=== PATIENT | female | born 2000 | race African-American/Black ===

== ENCOUNTER 2022-10-10 10:03 | Emergency (ER) | payer OTHER, SELFPAY ==
[2022-10-10 10:12] VITALS: BP 120/76; PULSE 103; RESP 16; TEMP 37.6; O2SAT 99
[2022-10-10 10:13] VITALS: BP 120/76; PULSE 103; RESP 16; TEMP 37.6; O2SAT 99
--- NOTE | 2022-10-10 10:13 | ED.URI ---
HPI - URI/Sore Throat General Chief Complaint: Upper Respiratory Infection Stated Complaint: sore throat Time Seen by Provider: 10/10/22 10:13 Source: patient, RN notes reviewed and old records reviewed Mode of arrival: ambulatory Limitations: no limitations History of Present Illness HPI Narrative: 22-year-old female presents to the [facility] with complaints of a sore throat for 3 days. Also states she has had generalized body aches. Reports a fever of 100.5. Has not taken anything for her symptoms. Reports that she tested for COVID at work just prior to arrival, reports negative, declined flu and COVID testing here Onset (ago): day(s) (3) Related Data Home Medications Medication Instructions Recorded Confirmed No Home Medications 10/10/22 10/10/22 Allergies Allergy/AdvReac Type Severity Reaction Status Date / Time No Known Allergies Allergy Verified 10/10/22 10:13 Review of Systems Review of Systems: All systems reviewed & are unremarkable except as noted in HPI and below Constitutional: Constitutional: Reports no additional constitutional complaints Eyes: Eyes: Reports no additional eye complaints ENT: Reports as per HPI and Reports sore throat Cardiovascular: Cardiovascular: Reports no additional cardiovascular complaints, Denies chest pain and Denies dyspnea Respiratory: Respiratory: Reports no additional respiratory complaints, Denies chest congestion, Denies cough and Denies dyspnea Gastrointestinal: Gastrointestinal: Reports no additional gastrointestinal complaints, Denies abdominal pain, Denies nausea and Denies vomiting Musculoskeletal: Musculoskeletal: Reports no additional musculoskeletal complaints Integumentary/Breasts: Skin/Breast: Reports system reviewed and no additional complaints, except as docu Neurologic: Reports system reviewed and no additional complaints, except as documented Psychiatric: Psychiatric: Reports no additional psychiatric complaints Allergic/Immunologic: Allergic/Immunologic: Reports no additional allergic/immunologic complaints PMFSH Comments At the time of my signature, I reviewed and agree with the nursing past medical, surgical, social, and family history. There is no relevant family history pertinent to the patient complaint. Exam Const: General: cooperative, healthy appearing, comfortable, no acute distress, well developed, alert and well nourished Nutritional Appearance: well nourished Orientation/consciousness: patient oriented x3 Limitations: no limitations HENMT: Head: normal to inspection Ears: hearing grossly normal bilaterally and external ears normal Face/Nose/Sinus: Normal external nose present, Normal nares present, Normal nasal mucous membranes and turbinates present and normal facial exam Face and sinus: normal facial exam Mouth: Yes Normal oral and palatal mucosa present, Yes lip normal and Yes moist mucous membranes Throat: posterior oropharynx normal and uvula midline Eyes: General: appearance normal, both eyes and all related structures Alignment and Position: alignment normal Periorbital: periorbital findings normal Conjunctivae: conjunctivae normal Pupils: Equal, round and reactive pupils present EOM: EOMs intact bilaterally Neck: Neck: normal visual inspection, full ROM, no lymphadenopathy and no meningeal signs Chest: Chest palpation & inspection: normal inspection of the chest Resp: Effort & Inspection: normal respiratory effort and able to speak in complete sentences Auscultation: clear to auscultation bilaterally, no crackles, no rales, no rhonchi and no wheezes Cardio: Rate: regular rate Rhythm: regular rhythm Back/Spine/Pelvis: Cervical Spine: cervical ROM normal Thoracic/Lumbar Spine: No thoracic spinal tenderness Skin: General skin exam: normal color and no rashes or lesions noted Lesions: no lesions Rashes: no rashes Wounds: no wounds Neuro: General: patient oriented x3, gait normal, tone normal, moves all extrem
== END 2022-10-10 10:30 | disposition home or self-care (01) ==
PROVIDERS: Emergency Provider Nurse Practitioner
DX: J06.9 Acute upper respiratory infection, unspecified (principal)
CPT/HCPCS: 87081; 87880; 99213; G0463

== ENCOUNTER 2024-01-12 15:56 | Emergency (ER) | payer OTHER, SELFPAY ==
[2024-01-12 16:11] VITALS: BP 106/75; PULSE 109; RESP 16; TEMP 37.4; O2SAT 100
--- NOTE | 2024-01-12 16:23 | ED.URI ---
HPI - URI/Sore Throat General Chief Complaint: Upper Respiratory Infection Stated Complaint: sinus issues Time Seen by Provider: 01/12/24 16:23 Source: patient Mode of arrival: ambulatory Limitations: no limitations History of Present Illness HPI Narrative: 23 yo F presents with c/o nasal congestion, ear pressure, dry cough and PND for 2 days. Not taking any OTC meds to treat her symptoms. afebrile. Well appearing. All systems reviewed and negative except as noted above. Related Data Allergies Allergy/AdvReac Type Severity Reaction Status Date / Time No Known Allergies Allergy Verified 01/12/24 16:00 Review of Systems Review of Systems: CONSTITUTIONAL: Denies fever, chills, or sweats. EYES: Denies visual changes, redness, or discharge. ENT: Reports rhinorrhea, congestion, ear pressure. Denies sore throat CARDIOVASCULAR: Denies chest pain, palpitations, or edema. RESPIRATORY: reports cough. Denies dyspnea. GASTROINTESTINAL: Denies abdominal pain, nausea, vomiting, or diarrhea. GENITOURINARY: Denies dysuria or hematuria. SKIN: Denies rash or itching. MUSCULOSKELETAL: Denies back pain, joint pain, or myalgia. NEUROLOGIC: Denies headache, numbness, or weakness. PSYCHIATRIC: Denies anxiety or depression. All other systems reviewed are negative, except as documented in HPI. PMFSH Comments At time of signature, agree with nursing past medical, surgical, social and family history. There is no relevant family history pertinent to the presenting complaint. Exam Narrative: GENERAL: This is a well-nourished, well-developed patient, in no apparent distress. HEAD: normocephalic, atraumatic. EYES: PERRL. Sclera clear/white. Vision is grossly intact. EARS: External ears normal, auditory canals clear and without drainage, TMs normal without perforation. Hearing grossly intact. NOSE: External nose normal with nasal drainage no significant erythema or swelling to nares. THROAT: Mucous membranes moist, Her postnasal drainage without erythema, swelling or exudates. NECK: Neck supple, non-tender without lymphadenopathy, masses or thyromegaly. CARDIOVASCULAR: Regular rate and rhythm without murmurs, gallops, or rubs. RESPIRATORY: Clear to auscultation. Breath sounds equal bilaterally. No wheezes, rales, or rhonchi. SKIN: warm, Dry, intact with no suspicious lesions or rash, good texture and turgor. NEURO: awake, alert, and oriented to person, place and time. There were no obvious focal neurologic abnormalities. EXTREMITIES: No joint tenderness, effusion, or edema noted. Course Course Level of Care: Express Care Visit Vital Signs Vital signs: Vital Signs Temperature 37.4 C 01/12/24 16:11 Pulse Rate 109 H 01/12/24 16:11 Respiratory Rate 16 01/12/24 16:11 Blood Pressure 106/75 01/12/24 16:11 Pulse Oximetry 100 01/12/24 16:11 Oxygen Delivery Room Air 01/12/24 16:11 Temperature 37.4 C 01/12/24 16:11 Pulse Rate 109 H 01/12/24 16:11 Respiratory Rate 16 01/12/24 16:11 Blood Pressure 106/75 01/12/24 16:11 Pulse Oximetry 100 01/12/24 16:11 Oxygen Delivery Room Air 01/12/24 16:11 Reviewed MDM - URI/Sore Throat MDM Narrative Medical decision making narrative: Patient is aware of diagnosis, understands and agrees to treatment plan. Anticipatory guidance given. Patient agrees to follow-up as directed and is aware of reasons to seek care at the emergency department. Portions of this record may have been created with voice recognition software patient well-appearing. Mild exam findings. Symptoms are viral or allergy related. Recommend treatment with [id number] medications. Lab Data Labs: Lab Results 01/12/24 01/12/24 Range/Units 16:06 16:36 POC Inf A,B Int Ctl Clarice Yes POC Influenza A Ag Negative POC Influenza B Ag Negative POC SARS CoV-2 Ag Negative (Negative) POC Grp A Strep Screen Presumptive negative Gp A Beta Strep Culture
[2024-01-12 16:41] LABS: EDINFLUASCREEN Negative; EDINFLUBSCREEN Negative; EDSTREPNEGPOS1 Presumptive Negative
== END 2024-01-12 16:30 | disposition home or self-care (01) ==
PROVIDERS: Emergency Provider Nurse Practitioner Family
DX: J01.90 Acute sinusitis, unspecified (principal); Z20.822 Contact with and (suspected) exposure to COVID-19
CPT/HCPCS: 87081; 87426; 87804; 87880; 99213; G0463

== ENCOUNTER 2024-11-01 20:39 | Observation (INO) | payer OTHER, SELFPAY ==
--- OUTSIDE RECORDS SUMMARY | 2024-11-01 20:06 | XMS_ITS | Referral Summary ---
Author Organization [facility] Address [address] [place] [address] Care Team Providers Care Ambulance Driver Name Role Phone No, Physician Primary Care Provider [phone] Allergies No known active allergies Medications enalapril (VASOTEC) 5 mg tablet Take 1 tablet (5 mg total) by mouth 2 (two) times a day 60 tablet 11 10/28/2019 Active NIFEdipine (PROCARDIA XL/ADALAT CC) 60 mg 24 hr tablet Take 2 tablets (120 mg total) by mouth daily 60 tablet 11 10/28/2019 Active acetaminophen (TYLENOL) 500 mg tablet Take 2 tablets (1,000 mg total) by mouth every 6 (six) hours as needed for pain 60 tablet 10/28/2019 Active oxyCODONE (ROXICODONE) 5 mg immediate release tabletIndicatio ns:Pain Take 1 tablet (5 mg total) by mouth every 4 (four) hours as needed for pain 20 tablet 10/28/2019 Active polyethylene glycol (MIRALAX) 17 gram packetIndicatio ns:constipation Take 1 packet (17 g total) by mouth daily 30 packet 10/28/2019 Active ondansetron (ZOFRAN) 4 mg tablet Take 1 tablet (4 mg total) by mouth every 6 (six) hours 12 tablet 03/04/2021 Active prochlorperazin e (COMPAZINE) 10 mg tablet Take 1 tablet (10 mg total) by mouth 2 (two) times a day as needed for nausea or vomiting 10 tablet 03/04/2021 Active TiZANidine (ZANAFLEX) 4 mg capsule Take 1 capsule (4 mg total) by mouth 2 (two) times a day as needed for muscle spasms 10 capsule 10/03/2022 Active lidocaine (LIDODERM) 5 % Place 1 patch on the skin daily for 7 days Remove & discard patch within 12 hours or as directed by . 7 patch 10/03/2022 Active ondansetron (ZOFRAN) 4 mg tablet Take 1 tablet (4 mg total) by mouth every 6 (six) hours 12 tablet 05/30/2024 Active acetaminophen (TYLENOL) 500 mg tablet Take 2 tablets (1,000 mg total) by mouth every 6 (six) hours as needed for pain 30 tablet 05/30/2024 Active Active Problems Problem Noted Date Diagnosed Date care following delivery 10/07 Overview (10/28/2019): # ID: Afebrile. No signs/symptoms of infection. # Heme: EBL 650 mL. No symptoms acute blood loss anemia. # CV/Pulm: Pre-eclampsia with severe features - s/p 24 hours magnesium sulfate. Blood pressures remain inadequately controlled after uptitration to N120XL yesterday. Amlodipine given once without improvement. Will switch to enalapril given different mechanism of action. Patient started on Enalapril 5 mg BID. Enrolled in [facility]. CBC/CMP wnl, UPC 10.8. # GI/: Tolerating PO. Voiding spontaneously. # Pain: Controlled with above regimen. # UDS+: For SW consult # Post DVT prophylaxis: Patient has the following moderate risk factors: Preeclampsia. Her post prophylaxis plan is prophylactic lovenox 2/2 nephrotic range proteinuria # MOC: Declines s/p counseling # MOF: # Disposition: Desires discharge home today pending BP control. Estimated Date of Delivery Comme nts Yes 12/24/2024 Social History Tobacco Use Types Packs/Day Years Used Date Smoking Tobacco: Never Smokeless Tobacco: Never Personal Safety Answer Date Recorded Have you ever been in or are you currently in a harmful physical or emotional relationship or is someone making you feel afraid or unsafe? Denies 05/30/2024 Estimated Date of Delivery Comme nts Yes 12/24/2024 Sex and Gender Information Value Date Recorded Sex Assigned at Not on file Legal Sex Female 7:43 PM COATING MANAGER Gender Identity Not on file Sexual Orientation Not on file Last Filed Vital Signs Vital Sign Reading Time Taken Comments Blood Pressure 129/84 05/30/2024 10:25 PM COATING MANAGER Pulse 62 05/30/2024 10:25 PM COATING MANAGER Temperature 36.8 C (98.2 F) 05/30/2024 6:04 PM COATING MANAGER Respiratory Rate 16 05/30/2024 10:2 5 PM COATING MANAGER Oxygen Saturation 98% 05/30/2024 10: 25 PM COATING MANAGER Inhaled Oxygen Concentration - - Weight 46.7 kg (102 lb 15.3 oz) 05/13/2024 8:31 PM COATING MANAGER Height 157.5 cm (5' 2 ) 05/13/2024 8:31 PM COATING MANAGER Body Mass Index 18.83 05/13/2024 8:31 PM COATING MANAGER Plan of Treatment Not on file Insurance [employer] A[employer] BETTER [facility] AETNA [facility] Member Subscriber Plan / Payer (Ef fective 2020-Present) Name:Paris Chanel Relation to Subscriber:Self Name:Paris Chanel Payer ID:[id number] (NAIC) Group ID:Not on file Type:MEDICAID RISK OTHER Address: [facility] [id number] [place] [id number] Advance Directives For more information, please contact: [phone] * Full Code (Latest Code Status on File) Date Activated Date Inactivated Comments 10/25/2019 3:10 AM 10/28/2019 10:29 PM * Full Code Date Activated Date Inactivated Comments 10/24/2019 6:03 PM 10/25/2019 3:10 AM Care Teams Ambulance Driver Relationship Specialty Start Date End Date No, Physician PCP - General 05/29/24
--- OUTSIDE RECORDS SUMMARY | 2024-11-01 20:06 | XMS_ITS | Clinical Summary ---
Author Organization [facility] Address [address] [place] [id number] Care Team Providers Care Adolescent Psychiatrist Name Role Phone None, Provider MD Primary Care Provider Unavaila ble Allergies No known active allergies Medications metoclopramide 10 MG tablet Take 0.5 tablets (5 mg total) by mouth 4 (four) times daily as needed. 20 tablet 06/08/2019 Active Social History Tobacco Use Types Packs/Day Years Used Date Smoking Tobacco: Never Smokeless Tobacco: Never Alcohol Use Standard Drinks/Week Comments No 0 (1 standard drink = 0.6 oz pur e alcohol) AUDIT-C Answer Date Recorded Frequency of Alcohol Consumption Never 06/08/2019 Average Number of Drinks Not on file 019 Frequency of Binge Drinking Not on file 07/2018 Estimated Date of Delivery Comme nts Yes 01/17/2025 Sex and Gender Information Value Date Recorded Sex Assigned at Female 07/27/2024 6:42 AM RETENTION REPRESENTATIVE Legal Sex Female 6:22 PM CDT Gender Identity Female 07/27/2024 6:42 AM RETENTION REPRESENTATIVE Sexual Orientation Not on file Last Filed Vital Signs Vital Sign Reading Time Taken Comments Blood Pressure 107/58 07/27/2024 6:35 AM RETENTION REPRESENTATIVE Pulse 90 07/27/2024 6:35 AM RETENTION REPRESENTATIVE Temperature 36.6 C (97.9 F) 07/27/2024 6:35 AM RETENTION REPRESENTATIVE Respiratory Rate 18 07/27/2024 6:35 AM RETENTION REPRESENTATIVE Oxygen Saturation 100% 07/27/2024 6:35 AM RETENTION REPRESENTATIVE Inhaled Oxygen Concentration - - Weight 45.8 kg (101 lb) 07/27/2024 6:35 AM RETENTION REPRESENTATIVE Height 157.5 cm (5' 2 ) 07/27/2024 6:35 AM RETENTION REPRESENTATIVE Body Mass Index 18.47 07/27/2024 6:35 AM RETENTION REPRESENTATIVE Plan of Treatment Health Maintenance Due Date Last Done Comments Annual Physical 2004 Meningococcal B Vaccine (1 of 2 - Standard) 2017 COVID-19 Vaccine (3 - season) 2024 07/26/2021, 05/25/2021 Cervical Cancer Screening Pap Smear (Age 21 to 29) Every 3 Years 06/03/2027 06/03/2024, 06/03/2024, 06/03/2024 Cervical Cancer Screening 06/03/2027 DTaP, Tdap and Td Vaccines (9 - Td or Tdap) 06/16/2031 06/16/2021, 10/21/2019, 11/04/2012, Additional history exists Hepatitis B Vaccines Completed 05/19/2003, 01/02/2002, 2001 HPV Vaccines Completed 11/04/2012, 02/14/2012 Meningococcal Vaccine Aged Out 11/04/2012 No akbar christel eligible based on patient's age to complete this topic Hepatitis C Completed 06/03/2024, 06/03/2024 Pneumococcal Vaccine: Pediatrics (0 to 5 Years) and At-Risk Patients (6 to 49 Years) Aged Out No longer eligible based on patient's age to complete this topic RSV Immunization or 60+ Years (No Doses Required) Completed RSV Immunizations Under 20 Months Aged Out No longer eligible based on patient's age to [place] [address] MEDICAID Care Teams Adolescent Psychiatrist Relationship Specialty Start Date End Date None, Provider, PCP - General 06/08/19
--- OUTSIDE RECORDS SUMMARY | 2024-11-01 20:06 | XMS_ITS | Clinical Summary ---
Author Organization [facility] Address [address] [place] [address] Care Team Providers Care Environmental Engineering Professor Name Role Phone No, Physician Primary Care Provider [phone] Allergies No known active allergies Medications enalapril [...] on Enalapril 5 mg BID. Enrolled in [facility]. CBC/CMP wnl, UPC 10.8. # GI/: Tolerating [...] on file Legal Sex Female 7:43 PM MEDIA PRODUCTION OPERATOR Gender Identity Not on file Sexual Orientation Not on file Obstetrics History Para Term AB IAB SAB Ectopic Multiple Livin g Live Births 3 1 1 0 1 1 Date Outcome GA Total Labor Labor/2nd/3rd Weight Sex Type Anes PTL Dyana A1 A5 Name Clin 2019 32w 0d 0h 01m 0h 01m 1.21 kg (2 lb 10.7 oz) M CS-LT ranv Spinal N Livin g 8 9 HATTO N,BOY Sarah Mckeon MD Delivery Location:[facility] Main C ampus ([facility] L AND D PROCEDURE) Current Last Filed Vital Signs Vital Sign Reading Time Taken Comments Blood Pressure 129/84 05/30/2024 10:25 PM MEDIA PRODUCTION OPERATOR Pulse 62 05/30/2024 10:25 PM MEDIA PRODUCTION OPERATOR Temperature 36.8 C (98.2 F) 05/30/2024 6:04 PM MEDIA PRODUCTION OPERATOR Respiratory Rate 16 05/30/2024 10:2 5 PM MEDIA PRODUCTION OPERATOR Oxygen Saturation 98% 05/30/2024 10: 25 PM MEDIA PRODUCTION OPERATOR Inhaled Oxygen Concentration - - Weight 46.7 kg (102 lb 15.3 oz) 05/13/2024 8:31 PM MEDIA PRODUCTION OPERATOR Height 157.5 cm (5' 2 ) 05/13/2024 8:31 PM MEDIA PRODUCTION OPERATOR Body Mass Index 18.83 05/13/2024 8:31 PM MEDIA PRODUCTION OPERATOR Plan of Treatment Health Maintenance Due Date Last Done Comments Cervical Cancer Screening 2001 Depression Screening 2001 Hepatitis C Screening 2001 Meningococcal B Vaccine (1 of 2 - Standard) 2017 Regular Well Visit/Exam 18-64 2019 Covid-19 Vaccine (3 - 2023- season) 2024 07/26/2021, 05/25/2021 Influenza Vaccine (#1) 2024 DTaP/Tdap/Td Vaccine (9 - Td or Tdap) 06/16/2031 06/16/2021, 10/21/2019, 11/04/2012, Additional history exists Hepatitis B Screening Completed 08/06/2003 , 05/19/2003, 01/02/2002, Additional history exists HPV Vaccines Completed 11/04/2012, 02/14/2012 Varicella Vaccines Completed 02/11/2016, 11/13/2004 Pneumococcal vaccine <65 Aged Out No longer eligible based on patient's age to complete this [place] [address] AETNA BETTER [facility] AETNA [facility] Advance Directives For more information, please contact: [phone] * Full Code (Latest Code Status on File) Date Activated Date Inactivated Comments 10/25/2019 3:10 AM 10/28/2019 10:29 PM * Full Code Date Activated Date Inactivated Comments 10/24/2019 6:03 PM 10/25/2019 3:10 AM Care Teams Environmental Engineering Professor Relationship Specialty Start Date End Date No, Physician PCP - General 05/29/24
--- OUTSIDE RECORDS SUMMARY | 2024-11-01 20:06 | XMS_ITS | Data Portability ---
Author Organization [facility] Address [address] [place] [address] Assessment Encounter Date Assessment Date Assessment LastModified by Organization Details LastModified Time 04/14/2021 04/14/2021 Paris is a 20 y.o. alert female. Had a seizure prior to . Never has had that happened before. Did not seek medical attention. with hx. of pre-eclampsia and primary c/s at 32 weeks due to pre-eclampsia. Pt.'s u/s at that time indicated that she had a short cervix of 3.2. Doing well with current . No s/s of PE. Urine dip 100 protien. Was referred to [facility] but pt. missed her appointment. Was told to contact med. for a rescheduled appointment. Pt. phoned this provider after leaving today and informed provider of her medicine appointment in [place] on 04-21-21. Started on LDA q day. Reminded of s/s of PE. Informed of genetic screening test today. Not available 04/14/2021 16:20:31 04/28/2021 04/28/2021 Paris is a 20 y.o. with a close spaced , previous seizure activity not associated with or history of pre-eclampsia. Was seen by medicine on the . Had gestation and EDC changed. Late second trimester entry into care. Del. in 2019 by primary c/s at 31.6 wks due to [facility]eclampsia at [facility]. Doing well with current . Taking LDA with urine dip being protein neg. today. No s/s of pre-eclampsia this visit. Paris to keep medicine f/u appointment. No lab recommendations by med. Pt. to RTC in 3 weeks. Not available 04/28/2021 12:18:18 06/10/2021 06/10/2021 Paris is a 20 y.o. non-compliant repeat c/s with a hx. of pre-eclampsia, PTD and seizure activity. Being followed by [facility]. Had last visit 05-25-21 with no records found. Records to be requested. Discussed seriousness of keeping OB appointments. Last seen in this office in Apr. Urine dip concerning with lag. ketones, +1 protien and cloudiness. No s/s of pre-eclampsia. Has been exp. n/v with dry heaves. Encouraged to increase po water intake. Pt. to pick up attendant container for 24hr. urine on Sunday, RTC for 1 hr. GTT and OB visit on with Dr. Juarez. Pt. advised to continue LDA as recommended. Did start COVID-19 at [facility]. Not available 06/10/2021 18:10:57 Plan of Treatment Reminders Order Date Submit Date Provider Last Modified By Organization Details Last Modified Time Details Appointments None recorded. Lab test, urine 2023 024 [email or web address] 0 In-Office Order, Internal Use Only DO Not Attach Compendium DO Not Attach Compendium, Do Not Delete/merge, [id number] 10:57:25 bacterial vaginosis + vaginitis panel, vaginal 2020 021 JAYESH [facility] (Lab), [address] [place], [address], 1 10:08:41 urinalysis, dipstick 2020 021 [email or web address] In-Office Order, Internal Use Only DO Not Attach Compendium DO Not Attach Compendium, Do Not Delete/merge, [id number] 1 10:40:23 glucose tolerance test, gestational panel 2020 021 JAYESH [facility] (Lab), [address] [place], [address], 12/09/202 1 15:14:41 CBC 2020 021 [email or web address] [facility] (Lab), [address], [place], [address], 2 18:26:22 creatinine, 24-hour urine 2020 021 [facility] (Lab), [address], [place], [address], 2 14:08:52 protein, total, 24-hour urine 2020 021 [facility] (Lab), [address], [place], [address], 2 14:08:52 urinalysis, dipstick 2020 021 In-Office Order, Internal Use Only DO Not Attach Compendium DO Not Attach Compendium, Do Not Delete/merge, [id number] 17:52:26 hemoglobin + hematocrit, blood 2020 021 JAYESH [facility] (Lab), [address], [place], [address], 15:01:16 glucose tolerance test, post-50G, 1-hour 2020 021 [email or web address] (Lab), [address], [place], [address], 2 14:08:52 RPR (rapid plasma reagin), quantitativ e, serum 2020 021 JAYESH [facility] (Lab), [address], [place], [address], 10:11:59 urinalysis, dipstick 2020 021 In-Office Order, Internal Use Only DO Not Attach Compendium DO Not Attach Compendium, Do Not Delete/merge, [id number] 12:20:27 culture, urine 2020 021 [facility] (Lab), [address], [place], [address], 07:10:36 protein:cre atinine ratio, urine 2020 [facility] (Lab), [address], [place], [address], 20:45:18 CMP, serum or plasma 2020 [facility] (Lab), [address], [place], [address], 21:06:51 renal function panel, serum 2020 [facility] (Lab), [address], [place], [address], 21:06:49 urinalysis, dipstick 2020 021 In-Office Order, Internal Use Only DO Not Attach Compendium DO Not Attach Compendium, Do Not Delete/merge, [id number] 12:58:36 maternal screen, integrated, first and second trimester, serum 2020 [facility] (Lab), [address], [place], [address], 15:09:14 Referral None recorded. Procedures None recorded. Surgeries None recorded. Imaging None recorded. Medication Orders Diflucan 150 mg tablet 2020 021 [email or web address] 0 [id number], [address] [place], [address], 4 10:55:46 Vitamin B-6 25 mg tablet 2020 021 [email or web address] 0 [id number], [address] [facility], [place], [address], 4 10:56:57 Adult Low Dose Aspirin 81 mg tablet,eugenie yed release 2020 021 [email or web address] 0 [facility] [id number] [facility], [address] [facility], [place], [address], 4 10:55:23 aspirin 81 mg tablet,eugenie yed release 2020 021 [email or web address] 0 [id number], [facility], [place], [address], 4 10:55:23 Patient Targets Encounter Date Encounter Id Patient Goals Patient Target Last Modified By Organization Details Last Modified Time To not exp. s/s of PE during this Not available 04/14/2021 13:05:21 Completion of second timester of this with no complications Not available 04/28/2021 12:19:24 Complete third trimester with the del. of a healthy baby Not available 06/10/2021 18:11:15 Patient Instructions Encounter Date Encounter Id Patient Instructions Last Modified By Organization Details Last Modified Time 04/14/2021 [id number] Pt. informed to start LDA today and report any s/s of PE Not available 04/14/2021 13:05:45 04/28/2021 [id number] Pt. informed of benefits and recommendations for COVID-19 vaccine during Not available 04/28/2021 12:20:24 06/10/2021 [id number] Pt. instructed t o not eat after midnight prior to OB visit Not available 06/10/2021 18:11:36 04/15/2024 [id number] Take UPT on 04/22/2024 Use a condom with EVERY sexual encounter to minimize your risk for sexually transmitted infection and unplanned . Do NOT douche as it disturbs the natural balance of bacteria in the vagina and can cause infection. Avoid scented soaps or lotions. Use a basic unscented soap for only the outer skin around your vagina. Wear cotton underwear, avoid thongs, avoid spandex, leggings and wear panty liners daily. You can try probiotics. [email or web address] Not available 04/15/2024 10:54:18 Reason for Referral None Reported. Results Created Date Observation Date Name Description Value Unit Range Abnormal Flag Note LastModifiedBy Organization Detail LastModifiedTime 04/28/2004/28/2021 urina lysis , dipst ick Leukocytes Large Not Available In-Offi ce Order Internal Use Only DO Not Attach Compendium DO Not Attach Compendium, Do Not Delete/merge, [id number] 04/28/2021 11:02:06 04/28/2004/28/2021 urina lysis , dipst ick Nitrite negati ve Not Available In-Office Order Internal Use Only DO Not Attach Compendium DO Not Attach Compendium, Do Not Delete/merge, [id number] 04/28/2021 11:02:06 04/28/2004/28/2021 urina lysis , dipst ick Urobilinogen .2 Not Available In-Of fice Order Internal Use Only DO Not Attach Compendium DO Not Attach Compendium, Do Not Delete/merge, [id number] 04/28/2021 11:02:06 04/28/2004/28/2021 urina lysis , dipst ick Protein Negati ve Not Available In-Office Order Internal Use Only DO Not Attach Compendium DO Not Attach Compendium, Do Not Delete/merge, [id number] 04/28/2021 11:02:06 04/28/2004/28/2021 urina lysis , dipst ick pH 7.0 Not Available In-Office Order Internal Use Only DO Not Attach Compendium DO Not Attach Compendium, Do Not Delete/merge, [id number] 04/28/2021 11:02:06 04/28/2004/28/2021 urina lysis , dipst ick Blood Negati ve Not Available In-Office Order Internal Use Only DO Not Attach Compendium DO Not Attach Compendium, Do Not Delete/merge, [id number] 04/28/2021 11:02:06 04/28/2004/28/2021 urina lysis , dipst ick Specific [place] 1.030 Not Available In-Off ice Order Internal Use Only DO Not Attach Compendium DO Not Attach Compendium, Do Not Delete/merge, [id number] 04/28/2021 11:02:06 04/28/2004/28/2021 urina lysis , dipst ick Ketone Negati ve Not Available In-Office Order Internal Use Only DO Not Attach Compendium DO Not Attach Compendium, Do Not Delete/merge, [id number] 04/28/2021 11:02:06 04/28/2004/28/2021 urina lysis , dipst ick Bilirubin Negati ve Not Available In-Office Order Internal Use Only DO Not Attach Compendium DO Not Attach Compendium, Do Not Delete/merge, [id number] 04/28/2021 11:02:06 04/28/20 21 04/28/2021 urina lysis , dipst ick Glucose Negati ve Not Available In-Office Order Internal Use Only DO Not Attach Compendium DO Not Attach Compendium, Do Not Delete/merge, [id number] 04/28/2021 11:02:06 04/28/2004/28/2021 urina lysis , dipst ick Appearance Cloudy Not Available In-Offi ce Order Internal Use Only DO Not Attach Compendium DO Not Attach Compendium, Do Not Delete/merge, [id number] 04/28/2021 11:02:06 04/28/2004/28/2021 urina lysis , dipst ick Color Yellow Not Available In-Office Order Internal Use Only DO Not Attach Compendium DO Not Attach Compendium, Do Not Delete/merge, [id number] 04/28/2021 11:02:06 04/14/2004/14/2021 urina lysis , dipst ick Leukocytes Trace Not Available In-Offi ce Order Internal Use Only DO Not Attach Compendium DO Not Attach Compendium, Do Not Delete/merge, [id number] 04/14/2021 12:31:58 04/14/2004/14/2021 urina lysis , dipst ick Nitrite negati ve Not Available In-Office Order Internal Use Only DO Not Attach Compendium DO Not Attach Compendium, Do Not Delete/merge, [id number] 04/14/2021 12:31:58 04/14/2004/14/2021 urina lysis , dipst ick Urobilinogen .2 Not Available In-Of fice Order Internal Use Only DO Not Attach Compendium DO Not Attach Compendium, Do Not Delete/merge, [id number] 04/14/2021 12:31:58 04/14/20 21 04/14/2021 urina lysis , dipst ick Protein 100 Not Available In-Office Order Internal Use Only DO Not Attach Compendium DO Not Attach Compendium, Do Not Delete/merge, [id number] 04/14/2021 12:31:58 04/14/20 21 04/14/2021 urina lysis , dipst ick pH 5.0 Not Available In-Office Order Internal Use Only DO Not Attach Compendium DO Not Attach Compendium, Do Not Delete/merge, [id number] 04/14/2021 12:31:58 04/14/20 21 04/14/2021 urina lysis , dipst ick Blood Negati ve Not Available In-Office Order Internal Use Only DO Not Attach Compendium DO Not Attach Compendium, Do Not Delete/merge, 04/14/2021 12:31:58 04/14/20 21 04/14/2021 urina lysis , dipst ick Specific [place] 1.030 Not Available In-Off ice Order Internal Use Only DO Not Attach Compendium DO Not Attach Compendium, Do Not Delete/merge, [id number] 04/14/2021 12:31:58 04/14/20 21 04/14/2021 urina lysis , dipst ick Ketone Negati ve Not Available In-Office Order Internal Use Only DO Not Attach Compendium DO Not Attach Compendium, Do Not Delete/merge, 04/14/2021 12:31:58 04/14/20 21 04/14/2021 urina lysis , dipst ick Bilirubin Negati ve Not Available In-Office Order Internal Use Only DO Not Attach Compendium DO Not Attach Compendium, Do Not Delete/merge, 04/14/2021 12:31:58 04/14/20 21 04/14/2021 urina lysis , dipst ick Glucose Negati ve Not Available In-Office Order Internal Use Only DO Not Attach Compendium DO Not Attach Compendium, Do Not Delete/merge, [id number] 04/14/2021 12:31:58 04/14/20 21 04/14/2021 urina lysis , dipst ick Appearance Slight ly Cloudy Not Available In-Office Order Internal Use Only DO Not Attach Compendium DO Not Attach Compendium, Do Not Delete/merge, [id number] 04/14/2021 12:31:58 04/14/20 21 04/14/2021 urina lysis , dipst ick Color Yellow Not Available In-Office Order Internal Use Only DO Not Attach Compendium DO Not Attach Compendium, Do Not Delete/merge, [id number] 04/14/2021 12:31:58 04/14/2004/14/2021 URINE PROTE IN CREAT RATIO , MELLOO M urine creatnine 382.7 Not Available [facility] (Lab) [address] [facility], [place], [address], 04/14/2021 20:45:17 04/14/20 21 04/14/2021 URINE PROTE IN CREAT RATIO , MELLOO M urine protein 30.0 mg/dL Not Available [facility] (Lab) [address] [facility], [place], [address], 04/14/2021 20:45:17 04/14/20 21 04/14/2021 URINE PROTE IN CREAT RATIO , MELLOO M urine protein/crea t 78.4 mg/g_ creat 0.0-20 0.0 Not Available [facility] (Lab) [address] [facility], [place], [address], 04/14/2021 20:45:17 04/14/20 21 04/14/2021 RENAL FUNCT ION PANEL glucose, serum 60 mg/dL 65-99 low Not Available [facility] (Lab) [address] [facility], [place], [address], 04/14/2021 21:06:49 04/14/20 04/14/2021 RENAL FUNCT ION PANEL BUN 9 mg/dL 8-26 Not Available [facility] (Lab) [address], [place], [address], 04/14/2021 21:06:49 04/14/20 21 04/14/2021 RENAL FUNCT ION PANEL creatinine, serum 0.60 mg/dL 0.50-1 .40 Not Available [facility] (Lab) [address], [place], [address], 04/14/2021 21:06:49 04/14/20 21 04/14/2021 RENAL FUNCT ION PANEL BUN/creatnin e ratio 14.2 Not Available [facility] (Lab) [address], [place], [address], 04/14/2021 21:06:49 04/14/20 21 04/14/2021 RENAL FUNCT ION PANEL sodium, serum 137.0 mmol/ L 136.0- 144.0 Not Available [facility] (Lab) [address], [place], [address], 04/14/2021 21:06:49 04/14/20 21 04/14/2021 RENAL FUNCT ION PANEL potassium, serum 4.1 mmol/ L 3.5-5. 3 Not Available [facility] (Lab) [address] [place], [address], 04/14/2021 21:06:49 04/14/20 21 04/14/2021 RENAL FUNCT ION PANEL chloride, serum 102 mmol/ l 101-11 1 Not Available [facility] (Lab) [address] [place], [address], 04/14/2021 21:06:49 04/14/20 21 04/14/2021 RENAL FUNCT ION PANEL carbon dioxide total 23.9 mmol/ L 21.0-3 2.0 Not Available [facility] (Lab) [address] [place], [address], 04/14/2021 21:06:49 04/14/20 21 04/14/2021 RENAL FUNCT ION PANEL aniongp 15.0 mmol/ L Not Available [facility] (Lab) [address] [place], [address], 04/14/2021 21:06:49 04/14/20 21 04/14/2021 RENAL FUNCT ION PANEL calcium, serum 9.1 mg/dL 8.2-10 .0 Not Available [facility] (Lab) [address] [place], [address], 04/14/2021 21:06:49 04/14/2004/14/2021 RENAL FUNCT ION PANEL osmol 270.0 mOsm/ L 275.0- 301.0 low Not Available [facility] (Lab) [address] [place], [address], 04/14/2021 21:06:49 04/14/20 21 04/14/2021 RENAL FUNCT ION PANEL albumin, serum 3.9 g/dL 3.5-5. 5 Not Available [facility] (Lab) [address] [place], [address], 04/14/2021 21:06:49 04/14/20 21 04/14/2021 RENAL FUNCT ION PANEL phospho 5.0 mg/dL 2.7-4. 5 high Not Available [facility] (Lab) [address] [place], [address], 04/14/2021 21:06:49 04/14/20 21 04/14/2021 COMPR EHENS SLAVA METAB OLIC PANEL glucose, serum 60 mg/dL 65-99 low Not Available [facility] (Lab) [address] [place], [address], 04/14/2021 21:06:51 04/14/20 21 04/14/2021 COMPR EHENS SLAVA METAB OLIC PANEL BUN 9 mg/dL 8-26 Not Available [facility] (Lab) [address] [place], [address], 04/14/2021 21:06:51 04/14/20 21 04/14/2021 COMPR EHENS SLAVA METAB OLIC PANEL creatinine, serum 0.60 mg/dL 0.50-1 .40 Not Available [facility] (Lab) [address], [place], [address], 04/14/2021 21:06:51 04/14/20 21 04/14/2021 COMPR EHENS SLAVA METAB OLIC PANEL BUN/creatnin e ratio 14.[address] [facility] (Lab) [address], [place], [address], 04/14/2021 21:06:51 04/14/20 21 04/14/2021 COMPR EHENS SLAVA METAB OLIC PANEL sodium, serum 137.0 mmol/ L 136.0- 144.0 Not Available [facility] (Lab) [address] [place], [address], 04/14/2021 21:06:51 04/14/20 21 04/14/2021 COMPR EHENS SLAVA METAB OLIC PANEL potassium, serum 4.1 mmol/ L 3.5-5. 3 Not Available [facility] (Lab) [address], [place], [address], 04/14/2021 21:06:51 04/14/20 21 04/14/2021 COMPR EHENS SLAVA METAB OLIC PANEL chloride, serum 102 mmol/ l 101-11 1 Not Available [facility] (Lab) [address] [place], [address], 04/14/2021 21:06:51 04/14/20 21 04/14/2021 COMPR EHENS SLAVA METAB OLIC PANEL carbon dioxide total 23.9 mmol/ L 21.0-3 2.0 Not Available [facility] (Lab) [address] [place], [address], 04/14/2021 21:06:51 04/14/20 21 04/14/2021 COMPR EHENS SLAVA METAB OLIC PANEL aniongp 15.0 mmol/ L Not Available [facility] (Lab) [address] [place], [address], 04/14/2021 21:06:51 04/14/20 21 04/14/2021 COMPR EHENS SLAVA METAB OLIC PANEL calcium, serum 9.1 mg/dL 8.2-10 .0 Not Available [facility] (Lab) [address] [place], [address], 04/14/2021 21:06:51 04/14/20 21 04/14/2021 COMPR EHENS SLAVA METAB OLIC PANEL total protein 6.7 g/dL 6.7-8. 2 Not Available [facility] (Lab) [address], [place], [address], 04/14/2021 21:06:51 04/14/20 21 04/14/2021 COMPR EHENS SLAVA METAB OLIC PANEL albumin, serum 3.9 g/dL 3.5-5. 5 Not Available [facility] (Lab) [address] [place], [address], 04/14/2021 21:06:51 04/14/20 21 04/14/2021 COMPR EHENS SLAVA METAB OLIC PANEL agratio 1.4 Not Available [facility] (Lab) [address] [place], [address], 04/14/2021 21:06:51 04/14/20 21 04/14/2021 COMPR EHENS SLAVA METAB OLIC PANEL bilt 0.8 mg/dL 0.0-1. 2 Not Available [facility] (Lab) [address] [place], [address], 04/14/2021 21:06:51 04/14/20 21 04/14/2021 COMPR EHENS SLAVA METAB OLIC PANEL AST 11.3 U/L 10.0-4 2.0 Not Available [facility] (Lab) [address] [place], [address], 04/14/2021 21:06:51 04/14/20 21 04/14/2021 COMPR EHENS SLAVA METAB OLIC PANEL ALT 5.0 U/L 10.0-6 0.0 low Not Available [facility] (Lab) [address] [place], [address], 04/14/2021 21:06:51 04/14/20 21 04/14/2021 COMPR EHENS SLAVA METAB OLIC PANEL alk phos 49.3 IU/L 42.0-1 21.0 Not Available [facility] (Lab) [address] [place], [address], 04/14/2021 21:06:51 04/14/20 21 04/14/2021 COMPR EHENS SLAVA METAB OLIC PANEL osmol 270.0 mOsm/ L 275.0- 301.0 low Not Available [facility] (Lab) [address] [place], [address], 04/14/2021 21:06:51 04/14/20 21 04/16/2021 SECON D TRIME STER SCREE N results Report Not Available [facility] (Lab) [address] [place], [address], 04/16/2021 15:09:14 04/14/20 21 04/16/2021 SECON D TRIME STER SCREE N test results: *Scree n Negati ve* Not Available [facility] (Lab) [address] [place], [address], 04/16/2021 15:09:14 04/14/20 21 04/16/2021 SECON D TRIME STER SCREE N first trimester sample SPRCS Not Available [facility] (Lab) [address] [place], [address], 04/16/2021 15:09:14 04/14/20 21 04/16/2021 SECON D TRIME STER SCREE N collected on Date: 02/17 Not Available [facility] (Lab) [address] [place], [address], 04/16/2021 15:09:14 04/14/20 21 04/16/2021 SECON D TRIME STER SCREE N gestational age 12.0 weeks Not Available [facility] (Lab) [address], [place], [address], 04/16/2021 15:09:14 04/14/20 21 04/16/2021 SECON D TRIME STER SCREE N weight 98 lbs Not Available [facility] (Lab) [address] [place], [address], 04/16/2021 15:09:14 04/14/20 21 04/16/2021 SECON D TRIME STER SCREE N second trimester celeste SPRCS Not Available [facility] (Lab) [address] [place], [address], 04/16/2021 15:09:14 04/14/20 21 04/16/2021 SECON D TRIME STER SCREE N collected on Date: 04/14 Not Available [facility] (Lab) [address] [place], [address], 04/16/2021 15:09:14 04/14/20 21 04/16/2021 SECON D TRIME STER SCREE N gestational age 20.0 weeks Not Available [facility] (Lab) [address] [place], [address], 04/16/2021 15:09:14 04/14/20 21 04/16/2021 SECON D TRIME STER SCREE N weight 98 lbs Not Available [facility] (Lab) [address] [place], [address], 04/16/2021 15:09:14 04/14/20 21 04/16/2021 SECON D TRIME STER SCREE N gest. age based on As provid ed 12.0 on 02/17 Not Available [facility] (Lab) [address] [place], [address], 04/16/2021 15:09:14 04/14/2004/16/2021 SECON D TRIME STER SCREE N [age] Not Available [facility] (Lab) [address] [place], [address], 04/16/2021 15:09:14 04/14/20 21 04/16/2021 SECON D TRIME STER SCREE N race Black Not Available [facility] (Lab) [address] [place], [address], 04/16/2021 15:09:14 04/14/2004/16/2021 SECON D TRIME STER SCREE N insulin dep diabetes No Not Available [facility] (Lab) [address] [place], [address], 04/16/2021 15:09:14 04/14/2004/16/2021 SECON D TRIME STER SCREE N number of fetuses 1 Not Available [facility] (Lab) [address] [place], [address], 04/16/2021 15:09:14 04/14/20 21 04/16/2021 SECON D TRIME STER SCREE N indio-A value 757.7 NG/mL Not Available [facility] (Lab) [address] [place], [address], 04/16/2021 15:09:14 04/14/20 21 04/16/2021 SECON D TRIME STER SCREE N indio-A MOM 0.56 Not Available [facility] ([facility]) [address] [place], [address], 04/16/2021 15:09:14 04/14/20 21 04/16/2021 SECON D TRIME STER SCREE N AFP value 50.4 NG/mL Not Available [facility] (Lab) [address] [place], [address], 04/16/2021 15:09:14 04/14/20 21 04/16/2021 SECON D TRIME STER SCREE N AFP MOM 0.68 Not Available [facility] (Lab) [address] [place], [address], 04/16/2021 15:09:14 04/14/20 21 04/16/2021 SECON D TRIME STER SCREE N HCG value 53.5 IU/mL Not Available [facility] ([facility]) [address] [place], [address], 04/16/2021 15:09:14 04/14/20 21 04/16/2021 SECON D TRIME STER SCREE N HCG MOM 1.94 Not Available [facility] (Lab) [address] [place], [address], 04/16/2021 15:09:14 04/14/20 21 04/16/2021 SECON D TRIME STER SCREE N UE3 value 1.49 NG/mL Not Available [facility] (Lab) [address] [place], [address], 04/16/2021 15:09:14 04/14/20 21 04/16/2021 SECON D TRIME STER SCREE N UE3 MOM 0.61 Not Available [facility] (Lab) [address] [place], [address], 04/16/2021 15:09:14 04/14/20 21 04/16/2021 SECON D TRIME STER SCREE N DORIAN value 200.4 pg/mL Not Available [facility] (Lab) [address] [place], [address], 04/16/2021 15:09:14 04/14/20 21 04/16/2021 SECON D TRIME STER SCREE N DORIAN MOM 0.81 Not Available [facility] ([facility]) [address] [place], [address], 04/16/2021 15:09:14 04/14/20 21 04/16/2021 SECON D TRIME STER SCREE N open spina bifida Screen ing Risk: <1 in [id number] Not Available [facility] (Lab) [address] [place], [address], 04/16/2021 15:09:14 04/14/20 21 04/16/2021 SECON D TRIME STER SCREE N down syndrome Scree claribel Risk: 1 in 490 Age Risk: 1 in 1141 Not Available [facility] (Lab) [address] [place], [address], 04/16/2021 15:09:14 04/14/20 21 04/16/2021 SECON D TRIME STER SCREE N trisomy 18 Scree claribel Risk: <1 in [address] Age Risk: 1 in 4445 Not Available [facility] (Lab) [address], [place], [address], 04/16/2021 15:09:14 04/14/20 21 04/16/2021 SECON D TRIME STER SCREE N osb interpretati on OSBN Scree n Negat slava for Open Spina Bifid a. Not Available [facility] (Lab) [address], [place], [address], 04/16/2021 15:09:14 04/14/20 21 04/16/2021 SECON D TRIME STER SCREE N down syndrome interp FTDSN Scree n Negat slava for Down syndr ome Not Available [facility] (Lab) [address] [place], [address], 04/16/2021 15:09:14 04/14/20 21 04/16/2021 SECON D TRIME STER SCREE N trisomy 18 interpret FT18N Scree n Negat slava for Triso my 18 Not Available [facility] (Lab) [address] [place], [address], 04/16/2021 15:09:14 04/14/20 21 04/16/2021 SECON D TRIME STER SCREE N comments: ACOG2 The Ameri can Colle ge of Obste trici ans and Gynec ologi sts recom mends that all women be couns eled regar ding the diffe rence s betwe en scree claribel and invas slava diagn ostic testi ng. Not Available [facility] (Lab) [address], [place], [address], 04/16/2021 15:09:14 04/14/20 21 04/16/2021 SECON D TRIME STER SCREE N note SPRCS Pleas e verif y all clini bibi data used in this risk asses sment and call [phone] with any corre ction s. . Davis hannon , Ph.D. , [facility] . Refer ences : Avail able upon reque st . Open Spina Bifid a (OSB) MoM Cutof fs Singl eton 2.5 Black 2.8 IDD 2.0 Twins 4.5 . Risk Cutof fs Down Syndr ome (DS) cutof f 1:270 Triso my 18 (T18) cutof f 1:100 . For furth er inqui dariela conta ct [facility] Cust[facility] alva [employer]i ce at [phone]. Not Available [facility] (Lab) [address], [place], [address], 04/16/2021 15:09:14 04/14/20 21 04/16/2021 SECON D TRIME STER SCREE N blank field . Not Available [facility] (Lab) [address], [place], [address], 04/16/2021 15:09:14 04/28/20 21 04/30/2021 URINE CULTU RE urine culture, routine Final report Not Available [facility] (Lab) [address] [place], [address], 04/30/2021 07:10:36 04/28/20 21 04/30/2021 URINE CULTU RE result 1 MUG Mixed uroge nital valerie 10,00 0-25, 000 colon y formi ng units per mL Not Available [facility] (Lab) [address] [place], [address], 04/30/2021 07:10:36 06/10/20 21 06/10/2021 urina lysis , dipst ick Leukocytes Negati ve Not Available In-Office Order Internal Use Only DO Not Attach Compendium DO Not Attach Compendium, Do Not Delete/merge, [id number] 06/10/2021 17:28:35 06/10/20 21 06/10/2021 urina lysis , dipst ick Nitrite negati ve Not Available In-Office Order Internal Use Only DO Not Attach Compendium DO Not Attach Compendium, Do Not Delete/merge, [id number] 06/10/2021 17:28:35 06/10/20 21 06/10/2021 urina lysis , dipst ick Urobilinogen .2 Not Available In-Of fice Order Internal Use Only DO Not Attach Compendium DO Not Attach Compendium, Do Not Delete/merge, [id number] 06/10/2021 17:28:35 06/10/20 21 06/10/2021 urina lysis , dipst ick Protein 100 Not Available In-Office Order Internal Use Only DO Not Attach Compendium DO Not Attach Compendium, Do Not Delete/merge, [id number] 06/10/2021 17:28:35 06/10/20 21 06/10/2021 urina lysis , dipst ick pH 5.5 Not Available In-Office Order Internal Use Only DO Not Attach Compendium DO Not Attach Compendium, Do Not Delete/merge, [id number] 06/10/2021 17:28:35 06/10/20 21 06/10/2021 urina lysis , dipst ick Blood Negati ve Not Available In-Office Order Internal Use Only DO Not Attach Compendium DO Not Attach Compendium, Do Not Delete/merge, [id number] 06/10/2021 17:28:35 06/10/20 21 06/10/2021 urina lysis , dipst ick Specific [place] 1.030 Not Available In-Off ice Order Internal Use Only DO Not Attach Compendium DO Not Attach Compendium, Do Not Delete/merge, [id number] 06/10/2021 17:28:35 06/10/20 21 06/10/2021 urina lysis , dipst ick Ketone Large Not Available In-Office Order Internal Use Only DO Not Attach Compendium DO Not Attach Compendium, Do Not Delete/merge, [id number] 06/10/2021 17:28:35 06/10/20 21 06/10/2021 urina lysis , dipst ick Bilirubin Small Not Available In-Offic e Order Internal Use Only DO Not Attach Compendium DO Not Attach Compendium, Do Not Delete/merge, [id number] 06/10/2021 17:28:35 06/10/20 21 06/10/2021 urina lysis , dipst ick Glucose Negati ve Not Available In-Office Order Internal Use Only DO Not Attach Compendium DO Not Attach Compendium, Do Not Delete/merge, [id number] 06/10/2021 17:28:35 06/10/20 21 06/10/2021 urina lysis , dipst ick Appearance Slight ly Cloudy Not Available In-Office Order Internal Use Only DO Not Attach Compendium DO Not Attach Compendium, Do Not Delete/merge, [id number] 06/10/2021 17:28:35 06/10/20 21 06/10/2021 urina lysis , dipst ick Color Yellow Not Available In-Office Order Internal Use Only DO Not Attach Compendium DO Not Attach Compendium, Do Not Delete/merge, [id number] 06/10/2021 17:28:35 06/16/20 21 06/16/2021 HEMOG LOBIN AND HEMAT OCRIT (H&H) hemoglobin 10.4 g/dL 11.5-1 5.5 low Not Available [facility] (Lab) [address], [place], [address], 06/16/2021 15:01:15 06/16/20 21 06/16/2021 HEMOG LOBIN AND HEMAT OCRIT (H&H) hematocrit 31.7 % 36.0-4 8.0 low Not Available [facility] (Lab) [address] [facility], [place], [address], 06/16/2021 15:01:15 06/16/20 21 06/16/2021 GTT - PRENA DEX (NO FBS) 1 HR GTT- 73 mg/dL <=140 Not Available [facility] (Lab) [address] [facility], [place], [address], 06/16/2021 15:14:41 06/16/20 21 06/16/2021 GTT - PRENA DEX (NO FBS) gttp1 comment If >140m g/dL at one hour, three hour fasti ng Gluco se Adrian ance test is recom ander d. Not Available [facility] (Lab) [address] [facility], [place], [address], 06/16/2021 15:14:41 06/16/20 21 06/17/2021 RPR (RAPI D PLASM A REAGI N), QUANT ITATI ON rapid plasma reagin, quant Non Reacti ve nonrea <1:1 Not Available [facility] (Lab) [address] [facility], [place], [address], 06/17/2021 10:11:58 06/16/20 21 06/19/2021 NUSWA B VAGIN ITIS PLUS (VG+) atopobium vaginae Low - 0 score Not Available [facility] (Lab) [address] [facility], [place], [address], 06/19/2021 10:08:40 06/16/20 21 06/19/2021 NUSWA B VAGIN ITIS PLUS (VG+) bvab 2 Low - 0 score Not Available [facility] (Lab) [address] [facility], [place], [address], 06/19/2021 10:08:40 06/16/20 21 06/19/2021 NUSWA B VAGIN ITIS PLUS (VG+) megasphaera 1 Low - 0 score Calcu late total score by antonio cardenas the 3 indiv idual bacte rial vagin osis (BV) marke r score s toget her. Total score is inter prete d as follo ws: Total score 0-1: Indic ates the absen ce of BV. Total score 2: Indet ermin ate for BV. Addit ional clini bibi data shoul d be evalu ated to estab mela a diagn osis. Total score 3-6: Indic ates the prese nce of BV. . This test was devel oped and its perfo rmanc e madeline cteri stics deter mined by [facility]. It has not been clear ed or appro edna by the Food and Drug Admin istra tion. Not Available [facility] (Lab) [address] [place], [address], 06/19/2021 10:08:40 06/16/20 21 06/19/2021 NUSWA B VAGIN ITIS PLUS (VG+) jenny albicans, ILYA Positi ve negati ve abnormal Not Available [facility] (Lab) [address] [place], [address], 06/19/2021 10:08:40 06/16/20 21 06/19/2021 NUSWA B VAGIN ITIS PLUS (VG+) jenny glabrata, ILYA Negati ve negati ve Not Available [facility] (Lab) [address] [facility], [place], [address], 06/19/2021 10:08:40 06/16/20 21 06/19/2021 NUSWA B VAGIN ITIS PLUS (VG+) trich vag by ILYA Negati ve negati ve Not Available [facility] (Lab) [address] [place], [address], 06/19/2021 10:08:40 06/16/20 21 06/19/2021 NUSWA B VAGIN ITIS PLUS (VG+) chlamydia trachomatis, ILYA Negati ve negati ve Not Available [facility] (Lab) [address] [place], [address], 06/19/2021 10:08:40 06/16/20 21 06/19/2021 NUSWA B VAGIN ITIS PLUS (VG+) neisseria gonorrhoeae, ILYA Negati ve negati ve Not Available [facility] (Lab) [address] [place], [address], 06/19/2021 10:08:40 06/16/20 21 06/16/2021 urina lysis , dipst ick Leukocytes Large Not Available In-Offi ce Order Internal Use Only DO Not Attach Compendium DO Not Attach Compendium, Do Not Delete/merge, [id number] 06/16/2021 09:59:48 06/16/20 21 06/16/2021 urina lysis , dipst ick Nitrite negati ve Not Available In-Office Order Internal Use Only DO Not Attach Compendium DO Not Attach Compendium, Do Not Delete/merge, [id number] 06/16/2021 09:59:48 06/16/20 21 06/16/2021 urina lysis , dipst ick Urobilinogen 1 Not Available In-Of fice Order Internal Use Only DO Not Attach Compendium DO Not Attach Compendium, Do Not Delete/merge, [id number] 06/16/2021 09:59:48 06/16/20 21 06/16/2021 urina lysis , dipst ick Protein Trace Not Available In-Office Order Internal Use Only DO Not Attach Compendium DO Not Attach Compendium, Do Not Delete/merge, [id number] 06/16/2021 09:59:48 06/16/20 21 06/16/2021 urina lysis , dipst ick pH 7.0 Not Available In-Office Order Internal Use Only DO Not Attach Compendium DO Not Attach Compendium, Do Not Delete/merge, [id number] 06/16/2021 09:59:48 06/16/20 21 06/16/2021 urina lysis , dipst ick Blood Negati ve Not Available In-Office Order Internal Use Only DO Not Attach Compendium DO Not Attach Compendium, Do Not Delete/merge, [id number] 06/16/2021 09:59:48 06/16/20 21 06/16/2021 urina lysis , dipst ick Specific [place] 1.025 Not Available In-Off ice Order Internal Use Only DO Not Attach Compendium DO Not Attach Compendium, Do Not Delete/merge, [id number] 06/16/2021 09:59:48 06/16/20 21 06/16/2021 urina lysis , dipst ick Ketone Negati ve Not Available In-Office Order Internal Use Only DO Not Attach Compendium DO Not Attach Compendium, Do Not Delete/merge, [id number] 06/16/2021 09:59:48 06/16/20 21 06/16/2021 urina lysis , dipst ick Bilirubin Negati ve Not Available In-Office Order Internal Use Only DO Not Attach Compendium DO Not Attach Compendium, Do Not Delete/merge, [id number] 06/16/2021 09:59:48 06/16/20 21 06/16/2021 urina lysis , dipst ick Glucose Negati ve Not Available In-Office Order Internal Use Only DO Not Attach Compendium DO Not Attach Compendium, Do Not Delete/merge, [id number] 06/16/2021 09:59:48 06/16/20 21 06/16/2021 urina lysis , dipst ick Appearance Clear Not Available In-Offi ce Order Internal Use Only DO Not Attach Compendium DO Not Attach Compendium, Do Not Delete/merge, [id number] 06/16/2021 09:59:48 06/16/20 21 06/16/2021 urina lysis , dipst ick Color [place] Not Available In-Office Order Internal Use Only DO Not Attach Compendium DO Not Attach Compendium, Do Not Delete/merge, [id number] 06/16/2021 09:59:48 04/15/20 24 04/15/2024 pregn nell test, urine HCG negati ve Not Available In-Office Order Internal Use Only DO Not Attach Compendium DO Not Attach Compendium, Do Not Delete/merge, [id number] 04/15/2024 10:37:27 06/14/20 21 05/23/2021 US, obste tric, mater nal evalu ation + anato my No observ ation record ed. [facility] [address], [place], [address], 06/16/2021 10:26:06 06/15/20 21 06/15/2021 US, obste tric, mater nal evalu ation + anato my No observ ation record ed. Not Available 2020 10:31:24 Result Notes None recorded. Problems Name Problem SNOMED Code Status Onset Date Resolution Date Notes Provider Name and Address Organization Details Recorded Time Pregnanc y 03274518 Completed 201808/04/2020 Fifi Rodríguez RN null, [facility] 2 11:19:19 Teenage pregnanc y 041848811 Completed 2018 Flaca Frederick null, [facility] 1 10:15:47 Nicolettean a user 528436058 Completed 2018 Reported stop of use 06-18-19 Flaca Frederick null, [facility] 1 10:15:47 Short cervical length in pregnanc y 452168380 Completed 2019 3.1cm. Repeated u/s 09-12-2019 cervical length 3.2. Reviewed signs/sx of labor, will defer further ultrasou nds. Flaca Frederick null, [facility] 1 10:15:47 Pre-ecla mpsia 402729991 Active With severe features , requirin g delivery at 31 weeks. Flaca Frederick null, [facility] 1 10:15:47 Pre-ecla mpsia 548543334 Completed With severe features , requirin g delivery at 31 weeks. Flaca Frederick null, [facility] 1 10:15:47 Past pregnanc y history of pre-ecla mpsia 45694117845 9100 Completed 2019 del. c/s at 32wks at [facility] Ellie Madrid MD Attn: Luis cardenas,[address] [facility], [place], [address], [facility] 3 12:18:06 Seizure 20338124 Completed 2020 First seizure liftime Ellie Madrid MD Attn: Luis cardenas,[address] [facility], [place], [address], [place] [facility] 3 12:18:06 Pregnanc y 46676333 Completed 202011/30/2021 Fifi Rodríg[place] RN null, [place] [facility] 2 11:19:19 Seen in medicine clinic [id number] Completed 2020 Will be seen in [place] Ellie Madrid MD Attn: Luis cardenas,[address] [facility], [place], [address], [place] [facility] 3 12:18:06 Delivery by emergenc y section 287732382 Completed 2019 31w6d due to preeclam psia Interest ed in [place] Ellie Madrid MD Attn: Luis cardenas,[address] [facility], [place], [address], [place] [facility] 3 12:18:06 COVID-19 905895066 Completed vaccine started 2nd dose due 06/22 Ellie Madrid MD Attn: Luis cardenas,[address] [facility], [place], [address], [place] [facility] 3 12:18:06 Problem Notes None recorded. Procedures Surgical History Date Name Laterality Status Provider Name and Address Organization Details Recorded Time 0 delivery completed Tana Gaspar [place] [facility] 02/17/2021 13:16:47 9 IUD Removal completed T[place] [facility] 03/14/2019 16:48:37 8 IUD Insertion completed Tana Gaspar [place] [facility] 8 14:53:01 Imaging Results Imaging Date Name Status LastModified by Organiz ation Details LastModified Time 05/23/2021 US, obstetric, maternal evaluation + anatomy completed [facility] [address] , [place], [address], 06/16/2021 10:26:06 06/15/2021 US, obstetric, maternal evaluation + anatomy completed Information not available 06/16/2021 10:31:24 Procedure Notes None recorded. Medical Equipment None Reported. Allergies No known drug allergies Medications Name Sig Start Date Stop Date Status Note LastModified by Organization Details LastModified Time Vitamin B-6 25 mg tablet Take 1 tablet twice a day by oral route for 30 days. 04/15 completed Not Available Not Available Not Available fluconazole 150 mg tablet Take 1 tablet as needed by oral route for 1 day. 04/15 completed Not Available Not Available Not Available metronidazo le 0.75 % (37.5 mg/5 gram) vaginal gel INSERT 1 VAGINAL APPLICATO R (5 GRAMS) AT BEDTIME FOR 5 DAYS. 04/15 completed Not Available Not Available Not Available aspirin 81 mg tablet,eugenie yed release Take 2 tablets every day by oral route for 30 days. 04/15 completed Not Available Not Available Not Available ondansetron 8 mg disintegrat ing tablet Place 1 tablet twice a day by transling ual route for 10 days. 04/15 completed Not Available Not Available Not Available Mapap (acetaminop hen) 500 mg capsule TAKE 2 (TWO) CAPSULES BY MOUTH EVERY 8 HOURS NEEDED FOR FEVER OR PAIN 04/15 completed Not Available Not Available Not Available ferrous sulfate 325 mg (65 mg iron) tablet TAKE 1 TABLET BY MOUTH EVERY DAY 04/15 completed Not Available Not Available Not Available docusate sodium 100 mg capsule TAKE 1 (ONE) CAPSULE BY MOUTH ONCE DAILY NEEDED FOR CONSTIPAT ION 04/15 completed Not Available Not Available Not Available estradiol 2 mg tablet Take 1 tablet every day by oral route for 14 days. 09/18 completed Not Available Not Available Not Available ibuprofen 600 mg tablet TAKE 1 TABLET BY MOUTH EVERY 6 HOURS NEEDED FOR PAIN 04/15 completed Not Available Not Available Not Available ondansetron 4 mg disintegrat ing tablet 04/15 completed Not Available Not Available Not Available doxycycline hyclate 100 mg tablet Take 1 tablet twice a day by oral route for 14 days. 04/15 completed Not Available Not Available Not Available metoclopram tray 10 mg tablet 04/15 completed Not Available Not Available Not Available Tablet 28 mg iron-800 mcg Take 1 tablet by oral route for 60 days. 04/15 completed Not Available Not Available Not Available azithromyci n 500 mg tablet TAKE 2 TABLETS BY MOUTH TODAY WITH FOOD 04/15 completed Not Available Not Available Not Available 27 mg iron-1 mg tablet Take 1 tablet every day by oral route for 60 days. 04/15 completed Not Available Not Available Not Available Klor-Con M20 mEq tablet,exte nded release 04/15 completed Not Available Not Available Not Available nitrofurant oin monohydrate /macrocryst als 100 mg capsule TAKE 1 CAPSULE BY MOUTH TWICE A DAY FOR 5 DAYS 04/15 completed Not Available Not Available Not Available Aleida 14 mcg/24 hr (up to 3 years) 13.5 mg intrauterin e device Take 1 device by intrauter ine route. 09/18 completed Not Available Not Available Not Available Estarylla 0.25 mg-0.035 mg tablet Take 1 tablet every day by oral route for 30 days. 09/18 completed Not Available Not Available Not Available Vitamins Plus Low Iron 27 mg iron-1 mg tablet 04/15 completed Not Available Not Available Not Available Se- 19 29 mg iron-1 mg tablet TAKE 1 TABLET BY MOUTH EVERY DAY 04/15 completed Not Available Not Available Not Available Vitals Date Recorded Body height Body mass index (BMI) [Percentile] Per age and sex Body mass index (BMI) Systolic blood pressure Diastolic blood pressure Provider Name and Address Organization Details Last Updated DateTime 157.48 cm 20 % 19.4 kg/m2 100 mm[Hg] 60 mm[Hg] Deisy Peoples MA [facility] 12:31:29 Date Recorded Body weight Provider Name an d Address Organization Details Last Updated DateTime 04/14/2021 60206.580264 g Tana Gaspar [facility] 04/14/20 21 12:44:30 Date Recorded Body height Body mass index (BMI) [Percentile] Per age and sex Body mass index (BMI) Systolic blood pressure Diastolic blood pressure Provider Name and Address Organization Details Last Updated DateTime 157.48 cm 32 % 20.3 kg/m2 98 mm[Hg] 56 mm[Hg] Deisy Peoples MA [facility] 11:01:20 Date Recorded Body weight Provider Name an d Address Organization Details Last Updated DateTime 04/28/2021 [id number] ronald Tana Gaspar [facility] 04/28/20 11:17:23 Date Recorded Body height Body mass index (BMI) [Percentile] Per age and sex Body mass index (BMI) Systolic blood pressure Diastolic blood pressure Provider Name and Address Organization Details Last Updated DateTime 157.48 cm 40 % 20.9 kg/m2 100 mm[Hg] 52 mm[Hg] Deisy Peoples MA [facility] 17:28:12 Date Recorded Body weight Provider Name an d Address Organization Details Last Updated DateTime 06/10/2021 [id number] ronald Tana Gaspar [facility] 06/10/20 18:01:45 Date Recorded Body height Body mass index (BMI) [Percentile] Per age and sex Body mass index (BMI) Systolic blood pressure Diastolic blood pressure Provider Name and Address Organization Details Last Updated DateTime 1 157.48 cm 41 % 21 kg/m2 98 mm[Hg] 58 mm[Hg] Indu Huntley MA [facility] 1 09:59:29 Date Recorded Body weight Provider Name an d Address Organization Details Last Updated DateTime 06/16/[id number] ronald Ortiz Larry [facility] 1 10:42:48 Date Recorded Body height Body mass index (BMI) Body weight Heart rate Systolic blood pressure Diastolic blood pressure Provider Name and Address Organization Details Last Updated DateTime 4 156.85 cm 18.3 kg/m2 79207.6 4 g 72 /min 113 mm[Hg] 75 mm[Hg] Deisy Peoples MA [facility] 4 10:32:32 Social History Question Answer Notes LastModified by Organizat ion Details LastModified Time Tobacco Smoking Status Never Smoker Tana reese [facility] 05/02/2019 17:19:57 Do You Have An Advance Directive? Yes Information not available 02/17/2021 What Is Your Level Of Alcohol Consumption? None Information not available 02/17/2021 Is Blood Transfusion Acceptable In An Emergency? Yes Information not available 02/17/2021 What Is Your Level Of Caffeine Consumption? None Information not available 02/17/2021 In The 14 Days Before Symptom Onset, Have You Had Close Contact With A Laboratory-confi rmed COVID-19 While That Case Was Ill? No Information not available 02/17/2021 In The 14 Days Before Symptom Onset, Have You Had Close Contact With A Person Who Is Under Investigation For COVID-19 While That Person Was Ill? No Information not available 02/17/2021 Have You Been To An Area Known To Be High Risk For COVID-19? No Information not available 02/17/2021 Are You Currently Employed? No Information not available 02/17/2021 What Type Of Diet Are You Following? REGULAR Advised To Avoid Foods High In Sodium Information not available 02/17/2021 Which Illicit Or Recreational Drugs Have You Used? Marijuana Information not available 02/17/2021 What Is The Highest Grade Or Level Of School You Have Completed Or The Highest Degree You Have Received? [id number] Information not available 02/17/2021 Have There Been Any Changes To Your Family Or Social Situation? No Information not available 02/17/2021 How Many Years Have You Used Illicit Or Recreational Drugs? 2 Information not available 02/17/2021 What Was The Date Of Your Most Recent Tobacco Screening? 04/15/2024 [email or web address] Information not available 04/15/2024 How Many Children Do You Have? 1 Information not available 02/17/2021 Do You Have Any Pets? No Information not available 02/17/2021 Do You Use Protection During Sex? No Information not available 02/17/2021 What Is Your Relationship Status? Domestic Partner Information not available 02/17/2021 Do You Use Your Seat Belt Or Car Seat Routinely? Yes Information not available 02/17/2021 Are You Sexually Active? Yes Information not available 02/17/2021 Do You Have Smoke And Carbon Monoxide Detectors In Your Home? Yes Information not available 02/17/2021 Are You Passively Exposed To Smoke? No Information not available 02/17/2021 Do You Feel Stressed (tense, Restless, Nervous, Or Anxious, Or Unable To Sleep At Night)? [id number] Information not available 02/17/2021 Do You Use Any Illicit Or Recreational Drugs? Yes Stopped Marijuana Use After Dx. Information not available 02/17/2021 Do You Use Sunscreen Routinely? No Advised To Use When Outdoors Information not available 02/17/2021 Have You Used IV Drugs? No Information not available 02/17/2021 Sex: Female Functional Status Question Answer Note LastModified by Organization D etails LastModified Time What is your exercise level? None Information not available 02/17/2021 Mental Status None recorded. Family History Nothing Reported. Medical History No medical history recorded. Gynecological History Statement/Question Response Flow Light Frequency of Cycle (Q days) 21 Sexually Active? Y On BCP's at Conception? N Menses Monthly Y STIs/STDs N Duration of Flow (days) 7 Sexual Problems? N Current Control Method LMP Approximate Obstetrics History GPAL:G 3 P 1 1 1 2 Type Value Multiple Births 0 Full Term 1 Induced 1 Spontaneous 0 Premature 1 Living 2 Ectopics 0 Total 3 Immunizations Vaccine Type Date Status Note Provider Nam e and Address Organization Details Recorded Time Hib, unspecified formulation 2 completed GINNY PHELAN NP Attn: [employer]ing,[address] [place], [address], [place] [facility] 04/15/2024 10:55:13 Hib, unspecified formulation 2 completed GINNY PHELAN NP Attn: [employer] [place], [address], [place] [facility] 04/15/2024 10:55:13 Hib, unspecified formulation 3 completed GINNY PHELAN NP Attn: [employer] [place], [address], [place] [facility] 04/15/2024 10:55:13 IPV 4 completed GINNY PHELAN NP Attn: [employer] [place] [facility], [place], [address], [place] [facility] 04/15/2024 10:55:13 IPV 5 completed GINNY PHELAN NP Attn: Accounting,[address] [facility], [place], [address], [place] [facility] 04/15/2024 10:55:13 IPV 2 completed GINNY PHELAN NP Attn: Accounting,20 [address] [facility], [place], [address], [place] [facility] 04/15/2024 10:55:13 IPV 6 completed GINNY PHELAN NP Attn: Accounting,20 [address] [facility], [place], [address], [place] [facility] 04/15/2024 10:55:13 IPV 3 completed GINNY PHELAN NP Attn: Accounting,20 [address] [facility], [place], [address], [place] [facility] 04/15/2024 10:55:13 MMR 4 completed GINNY PHELAN NP Attn: Accounting,20 [address] [facility], [place], [address], [place] [facility] 04/15/2024 10:55:13 MMR 5 completed GINNY PHELAN NP Attn: Accounting,20 [address] [facility], [place], [address], [place] [facility] 04/15/2024 10:55:13 Td(adult) unspecified formulation 2 completed GINNY PHELAN NP Attn: Accounting,20 [address] [facility], [place], [address], [place] [facility] 04/15/2024 10:55:13 Tdap 3 completed GINNY PHELAN NP Attn: Accounting,20 [address] [facility], [place], [address], [place] [facility] 04/15/2024 10:55:13 varicella 5 completed GINNY PHELAN NP Attn: Accounting,20 [address] [facility], [place], [place], [address] [place] [address], [place] [facility] 04/15/2024 10:55:13 varicella 6 completed GINNY PHELAN NP Attn: Accounting,20 [address] [facility], [place], [address] [place] [address], [place] [facility] 04/15/2024 10:55:13 HPV, unspecified formulation 3 completed GINNY PHELAN NP Attn: Accounting,20 [address] [facility], [place], [address] [place] [address], [place] [facility] 04/15/2024 10:55:13 HPV, unspecified formulation 2 completed GINNY PHELAN NP Attn: Accounting,20 [address] [facility], [place], [address] [place] [address], [place] [facility] 04/15/2024 10:55:13 Hep B, adolescent or pediatric 2 completed GINNY PHELAN NP Attn: Accounting,20 [address] [facility], [place], [address] [place] [address], [place] [facility] 04/15/2024 10:55:13 Hep B, adolescent or pediatric 3 completed GINNY PHELAN NP Attn: Accounting,20 [address] [facility], [place], [address] [place] [address], [place] [facility] 04/15/2024 10:55:13 Hep B, adolescent or pediatric 1 completed GINNY PHELAN NP Attn: Accounting,20 [address] [facility], [place], [address] [place] [address], [place] [facility] 04/15/2024 10:55:13 Hep A, ped/adol, 2 dose 3 completed GINNY PHELAN NP Attn: Accounting,20 [address] [facility], [place], [address] [place] [address], [place] [facility] 04/15/2024 10:55:13 Hep A, ped/adol, 2 dose 2 completed GINNY PHELAN NP Attn: Accounting,20 [address] [facility], [place], [address] [place] [address], [place] [facility] 04/15/2024 10:55:13 DTaP 5 completed GINNY PHELAN NP Attn: Accounting,20 [address] [facility], [place], [address] [place] [address], [place] [facility] 04/15/2024 10:55:13 DTaP 2 completed GINNY PHELAN NP Attn: Accounting,20 [address] [facility], [place], [address] [place] [address], [place] [facility] 04/15/2024 10:55:13 DTaP 2 completed GINNY PHELAN NP Attn: Accounting,20 [address] [facility], [place], [address] [place] [address], [place] [facility] 04/15/2024 10:55:13 DTaP 3 completed GINNY PHELAN NP Attn: Accounting,20 [address] [facility], [place], [address] [place] [address], [place] [facility] 04/15/2024 10:55:13 meningococcal MCV4, unspecified formulation 3 completed GINNY PHELAN NP Attn: Accounting,20 [address] [facility], [place], [address] [place] [address], [place] [facility] 04/15/2024 10:55:13 Tdap 0 [place] [facility] 10/21/2019 12:16:48 Tdap 1 [place] [facility] 06/16/2021 11:13:16 Past Encounters Encounter ID Performer Location Encounter Start Date Encounter Closed Date Diagnosis/Indication Diagnosis SNOMED-CT Code Diagnosis ICD10 Code Diagnosis Note [id number] Tana Prado [facility] (HOOP FLARING MACHINE OPERATOR) [address] [place] [address] 11/09/2017 15:10:20 11/09/2017 16:17:28 Contraception care 837061935 Z30.40 High risk sexual behavior 842373089 Z72.51 [id number] Tana Gaspar [facility] (HOOP FLARING MACHINE OPERATOR) [address] [place] [address] 12/07/2017 12:08:32 12/07/2017 15:17:43 Contraception care 424114164 Z30.40 Insertion of intrauterine contraceptive device 67238765 Z30.523 [id number] Tana Gaspar [facility] (HOOP FLARING MACHINE OPERATOR) [address] [place] [address] 01/07/2018 11:06:56 01/07/2018 12:47:12 Contraception care 598494748 Z30.40 IUD check 151363944 Z30. 479 [id number] Tana Gaspar [facility] (HOOP FLARING MACHINE OPERATOR) [address] [place] [address] 8 04/11/2018 11:09:59 04/11/2018 13:48:58 Menorrhagia 980821071 N92.0 Contraception care 03748 5005 Z30.40 [id number] TanaNEA [facility] (HOOP FLARING MACHINE OPERATOR) [address] [place] [address] 10/22/2018 10:30:29 10/22/2018 16:52:45 Vaginitis 90649473 N76.0 Menorrhagia 619640615 N9 2.0 High risk sexual behavior 008818887 Z72.51 Contraception care 66101 5005 Z30.40 [id number] TanaNEA [facility] (HOOP FLARING MACHINE OPERATOR) [address] [place] [address] 02/07/2019 16:28:28 02/10/2019 09:15:46 Irregular periods 51557524 N92.6 Contraception care 45077 5005 Z30.40 Depressive disorder 3548 9007 F32.9 [id number] TanaNEA [facility] (HOOP FLARING MACHINE OPERATOR) [address] [place] [address] 03/14/2019 15:53:43 03/17/2019 10:34:11 Venereal disease screening 634226137 Z11.3 High risk sexual behavior 380865985 Z72.51 [id number] Tana Gaspar [facility] (HOOP FLARING MACHINE OPERATOR) [address] [place] [address] 05/02/2019 16:24:47 05/05/2019 11:56:04 16262919 Z33.1 [id number] Tana Gaspar [facility] (HOOP FLARING MACHINE OPERATOR) [address] [place] [place] [address] 06/18/2019 11:22:00 06/18/2019 15:06:11 Normal 27205223 Z34.92 Vaginitis 30711318 N76.0 Dysuria 80874513 R30.9 [id number] Tana Gaspar [facility] (HOOP FLARING MACHINE OPERATOR) [address] [facility] [address] 07/10/2019 11:03:46 07/10/2019 13:34:20 Normal 60391749 Z34.92 [id number] Tana Gaspar [facility] (HOOP FLARING MACHINE OPERATOR) [address] [place] [address] 07/24/2019 16:10:55 07/24/2019 17:01:12 Normal 84319456 Z34.92 [id number] Tana Gaspar [facility] (HOOP FLARING MACHINE OPERATOR) [address] [place] [address] 09/09/2019 12:14:49 09/09/2019 15:42:25 Short cervical length in 366391096 O26.879 Normal 0964317 2 Z34.92 [id number] Flaca Frederick [facility] (HOOP FLARING MACHINE OPERATOR) [address] [place] [address] 09/19/2019 10:27:33 09/19/2019 12:54:51 Routine care 535128511 Z34.92 19y o at 26w6d (L, 14) here for routine OB care1) well being: S=D, +Doptones, +FM, reassuring 2) care: 1hr GTT, CBC, HIV, VDRL today3) Short cervical length: Incidental finding of 3.1cm cervix on anatomy us > 3.2cm on 09/12/19. Defer further screening, reviewed return precaution s.4) BCM: Undecided, failed Mirena5) Dispo: RTC 4 weeks or earlier PRN. Reviewed expectatio ns, return precaution s, delivery location and call system. [id number] Flaca Otoniel [facility] (HOOP FLARING MACHINE OPERATOR) [address] [place] [address] 10/21/2019 10:33:49 10/21/2019 14:05:57 Routine care 058609066 Z34.92 19yo at 31w3d (L, 14) here for routine OB care1) well being: S=D, +Doptones, +FM, reassuring 2) care: Tdap today. STI screening next visit.3) Short cervical length: Incidental finding of 3.1cm cervix on anatomy us > 3.2cm on 09/12/19. Defer further screening, reviewed return precaution s.4) BCM: Undecided, failed Mirena. Reviewed options 10/20.5) Dispo: RTC 2 weeks. Reviewed expectatio ns, return precaution s, delivery location and call system. [id number] [facility]HO[facility]ARING MACHINE OPERATOR[facility] [address] [place] [address] 02/17/2021 12:17:46 02/18/2021 15:52:50 12329349 Z33.1 Nausea and vomiting 1693 2000 R11.2 Past pregn nell history of pre-eclampsia 7516758032 53006 Z87.59 [id number] Diana Larry [facility] (HOOP FLARING MACHINE OPERATOR) [address] [place] [address] 04/14/2021 12:18:38 04/18/2021 13:43:48 Past history of pre-eclampsia 7111177685 62972 Z87.59 Normal 7058747 2 Z34.92 Proteinuria 20976964 R80 .9 Past pregn nell history of premature delivery 329461313 Z87.51 [id number] Tana Gaspar [facility] (HOOP FLARING MACHINE OPERATOR) [address] [place] [address] 04/28/2021 10:55:49 05/09/2021 13:54:19 Normal 78848782 Z34.92 Past pregn nell history of premature delivery 725040306 Z87.51 Cloudy urine 1837370 R82 .90 [id number] Tana Nations [facility] (HOOP FLARING MACHINE OPERATOR) [address] [place] [address] 06/10/2021 17:17:13 06/14/2021 19:06:00 Past history of pre-eclampsia 5418057401 59706 Z87.59 Nausea and vomiting 1693 2000 R11.2 Normal 6439691 2 Z33.1 Past pregn nell history of premature delivery 112153736 Z87.51 [id number] Diana Wester [facility] (HOOP FLARING MACHINE OPERATOR) [address] [place] [address] 06/16/2021 09:49:56 06/17/2021 16:37:52 Normal 14111434 Z34.90 Acute vaginitis 03719164 N76.0 [id number] GINNY PHELAN NP [facility] (HOOP FLARING MACHINE OPERATOR) [address] [place] [address] 04/15/2024 10:20:05 04/16/2024 13:03:28 test negative 790513609 Z32.02 LMP: 03/19/2024 normal flowSpotti ng noted on 04/10/24UPT Negative todayDue to last IC being 04/08/2024, encouraged her to take test on 04/22/2024 if no menses this week.Discu ssed with future that she would be high risk due to HX of severe pre-E with at 31.6 weeks. Health Concerns Section Related Observation LastModified by Organization Detai ls LastModified Time None Recorded Concern Status LastModified by Organization Details LastModified Time None Recorded Advance Directives Directive Y: Payers Encounter Date Sequence Insurance Name Policy Number Policy Puri Covered Member ID Puri Member ID Guarantor Name 04/14/2021 1 [employer] [place] ON [place] AFTER 2020 (MEDICAID REPLACEMENT - HMO) Paris Chanel [id number] Paris Chanel 04/28/2021 1 [employer] [place] REPLAC[place] - [place]MO) Paris Chanel [id number] Paris Chanel 06/10/2021 1 [employer] [place]AC[place] - [place]MO) Paris Chanel [id number] Paris Chanel 06/16/2021 1 [employer] [place] - [place]MO) Paris Chanel [id number] Paris Chanel 04/15/2024 1 [employer] [place] - [place]MO) Paris Chanel [id number] Paris Chanel Notes Date Note Type Note Provider Name and Address Organization Details Recorded Time 06/16/2021 text/html 26w6d OB visit Diana reese, [place] - [facility] 06/17/2021 16:37:42 04/15/2024 text/html Paris dotson 23yo B5005Eccu today for verification of pregnancyUPT: NegativeLMP: 03/19/2024 HX of regular menstrual cycles.Patient did have unprotected intercourse on 04/08/2024. GINNY PHELAN NP Attn: Accounting,[address] [place], [address], [facility] 04/15/2024 10:57:30 OBGyn Episode Ob Episode Information Episode Created Date Number of Fetuses Patient Bloodtype Patient rh Status Prepregnancy Weight lbs Domestic Partner Domestic Partner Phone Father Name Tractor Operator Laser Leveling Status 02/18/20 21 1 A Positive Teresa Salas CLOSED Fetus Data First Name Last Name Admitted to NICU Weight (g) Sex Living Outcome Pediatric Complications Fetus ID Race Codes Race Delivery Type 3404.79 11284 F Full Term [id number] 2057-12 Afric an Ameri can Problems Problem Notes med. u/s on 04-23-21 a t 19wk1d. changed EDC to 09-16-21. Problem Name Start Date End Date Resolution Snomed Code Not e Seen in medicine clinic 04/21/2021 [id number] Will be seen in [place] Past history of pre-eclampsia 10/25/2019 [id number] del. c/s at 32wks at [facility] Seizure 02/15/2021 [id number] First sei zure liftime Delivery by emergency section 10/24/2019 079726347 31w6d due to preeclampsiaInterested in [place] COVID-[address] [id number] dose due 06/22 Jameson Calculation Initial Jameson Date Initial Exam Date Initial Exam Provider Initial Ultrasound Date Last Menstrual Period Date Ultra Sound Weeks Gestation 09/16/2021 02/17/2021 04/23/2021 11/25/2020 0 Eighteen To Twenty Week Jameson Update Ultra Sound Date Fundal Height At Umbil Quickening Date Ultra Sound Latest Weeks Gestation Final Jameson Confirmed By Final Jameson Confirmed Date Final Jameson Date Ultra Sound Latest Days Gestation 0 04/28/2021 09/17/19 22 0 Pre-jose Flowsheet Flowsheet Date 02/17/2021 Francisco Score Blood Edema Fundus Height Fundus Units Glucose Ketones Leukocytes Nitrite Labor Signs Protein Cervic Dilation Cervic Effacement Cervic Station Type Weight in lbs Pre/Post Dialysis Refused Weight 98.611971789112 BP Diastolic BP Location Tested BP Systolic BP Type 60 98 sitting Fetus Heart Rate Present Fetus Movement Comments Presents for confi rmation. Knows that she is . with termination this year ( ). Terminated due to the fact that she knew she was high risk. Decided to keep this because BF wanted a baby. Exp. a seizure last week while hanging clothes out side. Not sure if she hit her head after fainting with the sezisure. No hx. of seziures and did not go to the hospital. Only having h/a now. Previous del. primary c/s 10-24-2019 due to pre-eclampsia. Del at 31wk6d with [facility]. Flowsheet Date 04/14/2021 Francisco Score Blood Edema Fundus Height Fundus Units Glucose Ketones Leukocytes Nitrite Labor Signs Protein Cervic Dilation Cervic Effacement Cervic Station neg none none negative none 1+ Type Weight in lbs Pre/Post Dialysis Refused Weight 105.376648696639 BP Diastolic BP Location Tested BP Systolic BP Type 60 100 sitting Fetus Heart Rate Present A 140's-150's Fetus Movement A Yes Comments RTC for OB visit. Knows that she is having a girl. No h/a, seizure or fainting. Denies dizziness, blurred or spotty vision. No epigastric pain. Urine dip positive for 100 protien. Flowsheet Date 04/28/2021 Francisco Score Blood Edema Fundus Height Fundus Units Glucose Ketones Leukocytes Nitrite Labor Signs Protein Cervic Dilation Cervic Effacement Cervic Station neg none 21 none negative none neg Type Weight in lbs Pre/Post Dialysis Refused Weight 110.789562425787 BP Diastolic BP Location Tested BP Systolic BP Type 56 98 sitting Fetus Heart Rate Present A 160's Fetus Movement A Yes Comments Returned today for visit. Has been seen by m. Appropiate growth for gestation. Resolution of previous short cervix. has 4wk f/u appointment. EDC changed based on first u/s by [facility] at 19wks. 1d. with a new EDC of 09-16-21. Continues to take LDA with no s/s of pre-eclampsia. No seizure activity. Urine dip neg. 3 pound weight gain this visit. Flowsheet Date 06/10/2021 Francisco Score Blood Edema Fundus Height Fundus Units Glucose Ketones Leukocytes Nitrite Labor Signs Protein Cervic Dilation Cervic Effacement Cervic Station neg none 27 none large none 1+ Type Weight in lbs Pre/Post Dialysis Refused Weight 114.898062191824 BP Diastolic BP Location Tested BP Systolic BP Type 52 100 sitting Fetus Heart Rate Present A 140's-150's Fetus Movement A Yes Comments RTC for visit. Stat es did not know she had a f/u appointment. Was seen at [facility] on 05-25-21. Informed that blood work did not show signs of pre-eclampsia. Incomplete records from that visit in EMR. Office closed now, will request on Sunday. Has not had any epigastric pain, blurred vision or h/a. Has been having some n/v with a poor appetite. Continues to take LDA and needs a refill. Will come Sunday to pick up attendant container for 24hr. urine and have 1hr.GTT on the while her for visit. Flowsheet Date 06/16/2021 Francisco Score Blood Edema Fundus Height Fundus Units Glucose Ketones Leukocytes Nitrite Labor Signs Protein Cervic Dilation Cervic Effacement Cervic Station neg none 26 cm none negative Other (see comments ) trace Type Weight in lbs Pre/Post Dialysis Refused Weight 115.779889762897 BP Diastolic BP Location Tested BP Systolic BP Type 58 98 sitting Fetus Heart Rate Present A 141 Present Fetus Movement A Yes Comments Was seen at [facility] in [place] w ith reports of nausea/emesis. She was treated for dehydration and low K. Discharged with vitamin B and K. Nausea improving. Reports vaginal irritation. Nuswab obtained. RX for yeast.Tdap/1 GTT/CBC today. + FM, no LOF, no bleeding, no cramping. RTC in 2 wks. Menstrual History Last Menstrual Date Menses Monthly On Bcp Conception Prior Menses Frequency Hcg Plus Date Menarche Onset Age 0511/25/2020 true false 28 1 16 Genetic Screening And Infection History Question Response Note Patient's Age Will Be 35 Yea rs Or Older At Estimated Date of Delivery false Thalassemia (Venezuelan, Cape Verdean, Mediterranean, Or Background): MCV < 80 false Neural Tube Defect (Meningom yelocele, Spina Bifida, Or Anencephaly) false Congenital Heart Defect false Down Syndrome false Fili-Sachs (eg, Church, Cajun , Togolese-Nauruan) false Blanca Disease false Sickle Cell Disease Or Trait () false Hemophilia Or Other Blood Disorders false Muscular Dystrophy false Cystic Fibrosis false Yoder's Chorea false Mental Retardation/Autism false If Yes, Was Person Tested Fo r Fragile X? false Other Inherited Genetic Or C hromosomal Disorder false Maternal Metabolic Disorder (eg, Type 1 Diabetes, PKU) false Patient Or Baby's Father Had A Child With Defects Not Listed Above true Previous of 2 yr. old 4 hernias and a cyst on his nipple Recurrent Loss, Or A Stillbirth true Termination 2020 Medications (including Suppl ements, Vitamins, Herbs, OTC Drugs), Illicit/Recreational Drugs, Alcohol false If Yes, Agent(s) And Strength/Dosage false Any Other Genetic History false Live With Someone With TB Or Exposed To TB false Patient Or Partner Has Histo ry Of Genital Herpes false Rash Or Viral Illness Since Last Menstrual Period false History Of STD, Gonorrhea, C hlamydia, HPV, Syphilis true Ch/GC Other Infection History false History of HIV false History of Hepatitis false Prior GBS-infected child false Delivery Information Delivery Date Delivery Type Labor Anesthesia Weeks Gestation Incision Type Labor Labor Length Hrs Delivered By Post Complications Tubal Sterilization Discharge Date Comments 2 Regional-Sp inal 38.6 Pam Gee M.D. 09/10/2021 Discharge Information Feeding Method Contraceptive Method Maternal HG B and HCT Levels 9.8/31.3 Ob Episode Information Episode Created Date Number of Fetuses Patient Bloodtype Patient rh Status Prepregnancy Weight lbs Domestic Partner Domestic Partner Phone Father Name Tractor Operator Laser Leveling Status 05/02/20 19 1 A Positive Brianna Carranza CLOSED Fetus Data First Name Last Name Admitted to NICU Weight (g) Sex Living Outcome Pediatric Complications Fetus ID Race Codes Race Delivery Type true [id number] 2053- Black or Afric an Ameri can Primary Problems Problem Notes Problem Name Start Date End Date Resolution Snomed Code Not e Pre-eclampsia 127394787 With s evere features, requiring delivery at 31 weeks. Teenage 05/02/2019 273685892 Short cervical length in 07/30/2019 981596483 3.1cm. Repeated u/s 09-12-2019 cervical length 3.2. Reviewed signs/sx of labor, will defer further ultrasounds. Marijuana user 05/02/2019 581425462 Repo rted stop of use 06-18-19 Jameson Calculation Initial Jameson Date Initial Exam Date Initial Exam Provider Initial Ultrasound Date Last Menstrual Period Date Ultra Sound Weeks Gestation 12/20/2019 05/02/2019 06/23/2019 03/15/2019 14 Eighteen To Twenty Week Jameson Update Ultra Sound Date Fundal Height At Umbil Quickening Date Ultra Sound Latest Weeks Gestation Final Jameson Confirmed By Final Jameson Confirmed Date Final Jameson Date Ultra Sound Latest Days Gestation 0 06/24/2019 12/20/19 20 0 Pre- Flowsheet Flowsheet Date 05/02/2019 Francisco Score Blood Edema Fundus Height Fundus Units Glucose Ketones Leukocytes Nitrite Labor Signs Protein Cervic Dilation Cervic Effacement Cervic Station Type Weight in lbs Pre/Post Dialysis Refused Weight 103.469271402239 BP Diastolic BP Location Tested BP Systolic BP Type 66 100 sitting Fetus Heart Rate Present Fetus Movement Comments Flowsheet Date 06/18/2019 Francisco Score Blood Edema Fundus Height Fundus Units Glucose Ketones Leukocytes Nitrite Labor Signs Protein Cervic Dilation Cervic Effacement Cervic Station trace none none negative none neg 0cm 0% -4 Type Weight in lbs Pre/Post Dialysis Refused Weight 105.676895035406 BP Diastolic BP Location Tested BP Systolic BP Type 58 100 Fetus Heart Rate Present A 150's-160's Fetus Movement A No Comments Presents today for NOB appoi ntment. C/O burning with onset of urination. Does have some vaginal itching. Has stopped smoking weed. Positive weight gain. No other complaints. Father of the baby present. Flowsheet Date 07/10/2019 Francisco Score Blood Edema Fundus Height Fundus Units Glucose Ketones Leukocytes Nitrite Labor Signs Protein Cervic Dilation Cervic Effacement Cervic Station neg none none negative Cramping neg Type Weight in lbs Pre/Post Dialysis Refused Weight 109.213086020318 BP Diastolic BP Location Tested BP Systolic BP Type 72 108 sitting Fetus Heart Rate Present A 150's-160's Fetus Movement A No Comments RTC for OB visit. Had been h aving some cramping and was told she was dehydrated. Has been increasing po fluids. Previous vaginaitis with resolution. Positive weight gain this visit. Flowsheet Date 07/24/2019 Francisco Score Blood Edema Fundus Height Fundus Units Glucose Ketones Leukocytes Nitrite Labor Signs Protein Cervic Dilation Cervic Effacement Cervic Station neg none none negative none neg Type Weight in lbs Pre/Post Dialysis Refused Weight 112.806959571854 BP Diastolic BP Location Tested BP Systolic BP Type 64 104 sitting Fetus Heart Rate Present A 150's-160's Fetus Movement A Yes Comments RTC with father of the baby for visit. Denies problems. Positive weight gain. AFP with neg. results. Flowsheet Date 09/09/2019 Francisco Score Blood Edema Fundus Height Fundus Units Glucose Ketones Leukocytes Nitrite Labor Signs Protein Cervic Dilation Cervic Effacement Cervic Station neg none 24 none negative none neg Type Weight in lbs Pre/Post Dialysis Refused Weight 117.654934027068 BP Diastolic BP Location Tested BP Systolic BP Type 70 110 sitting Fetus Heart Rate Present A 130's-140's Fetus Movement A Yes Comments RTC with father of the child for visit. 5 pound weight gain this visit. Completed treatment for yeast infection. Discussed last u/s results and need for rescheduling of an u/s to check on cervical lenght. Flowsheet Date 09/19/2019 Francisco Score Blood Edema Fundus Height Fundus Units Glucose Ketones Leukocytes Nitrite Labor Signs Protein Cervic Dilation Cervic Effacement Cervic Station neg none 25 cm none negative none neg Type Weight in lbs Pre/Post Dialysis Refused Weight 119.972518846895 BP Diastolic BP Location Tested BP Systolic BP Type 60 110 Fetus Heart Rate Present A 150 Present Fetus Movement A Yes Comments Denies contractions, VB, LOF , decreased movement. No acute complaints. Reviewed ultrasound results, discussed return precautions. Undecided on control, failed Mirena 2/2 side effects. 1hr GTT/CBC/RPR/HIV today. RTC in 4 weeks or earlier PRN. Flowsheet Date 10/21/2019 Francisco Score Blood Edema Fundus Height Fundus Units Glucose Ketones Leukocytes Nitrite Labor Signs Protein Cervic Dilation Cervic Effacement Cervic Station trace none 29 cm none negative Mychal Martinez 3+ Type Weight in lbs Pre/Post Dialysis Refused Weight [id number] BP Diastolic BP Location Tested BP Systolic BP Type 84 122 Fetus Heart Rate Present A 150 Fetus Movement A Yes Comments Seen at [facility] for contractions a few weeks prior, Mychal Martinez. Still present, unchanged. Denies VB, LOF, decreased movement. Reviewed BCM options today. Tdap given. RTC 2 weeks for routine care. Flowsheet Date 10/24/2019 Francisco Score Blood Edema Fundus Height Fundus Units Glucose Ketones Leukocytes Nitrite Labor Signs Protein Cervic Dilation Cervic Effacement Cervic Station Type Weight in lbs Pre/Post Dialysis Refused BP Diastolic BP Location Tested BP Systolic BP Type Fetus Heart Rate Present Fetus Movement Comments Presented to [facility] with decrea sed FM, BUSCH and severe range BP. Transferred to [facility] due to preeclampsia with severe features remote from delivery. Dr. Juarez Menstrual History Last Menstrual Date Menses Monthly On Bcp Conception Prior Menses Frequency Hcg Plus Date Menarche Onset Age 0903/15/2019 true true 28 9 14 Genetic Screening And Infection History Question Response Note Patient's Age Will Be 35 Yea rs Or Older At Estimated Date of Delivery false Thalassemia (Venezuelan, Cape Verdean, Mediterranean, Or Background): MCV < 80 false Neural Tube Defect (Meningom yelocele, Spina Bifida, Or Anencephaly) false Congenital Heart Defect false Down Syndrome false Fili-Sachs (eg, Church, Cajun, Togolese-Nauruan) f alse Blanca Disease false Sickle Cell Disease Or Trait () false Hemophilia Or Other Blood Disorders false Muscular Dystrophy false Cystic Fibrosis false Yoder's Chorea false Mental Retardation/Autism false If Yes, Was Person Tested For Fragile X? false Other Inherited Genetic Or Chromosomal Disorder false Maternal Metabolic Disorder (eg, Type 1 Diabetes , PKU) false Patient Or Baby's Father Had A Child With Defects Not Listed Above false Recurrent Loss, Or A Stillbirth false Medications (including Suppl ements, Vitamins, Herbs, OTC Drugs), Illicit/Recreational Drugs, Alcohol true marijuana If Yes, Agent(s) And Strength/Dosage false Any Other Genetic History false Live With Someone With TB Or Exposed To TB false Patient Or Partner Has History Of Genital Herpes false Rash Or Viral Illness Since Last Menstrual Perio d false History Of STD, Gonorrhea, Chlamydia, HPV, Syphi lis false Other Infection History false History of HIV false History of Hepatitis false Prior GBS-infected child false Delivery Information Delivery Date Delivery Type Labor Anesthesia Weeks Gestation Incision Type Labor Labor Length Hrs Delivered By Post Complications Tubal Sterilization Discharge Date Comments 0 None [facility] 31.6 Low Transvers e Hypertension false 10/27/2019 Nexpla non placed prior to discharge Discharge Information Feeding Method Contraceptive Method Maternal HG B and HCT Levels Breast Nexplanon 12.1
[2024-11-01 20:08] VITALS: BP 108/82; PULSE 92; RESP 16; TEMP 36.5; O2SAT 100
--- OUTSIDE RECORDS SUMMARY | 2024-11-01 20:47 | XMS_ITS | Referral Summary ---
Author Organization [facility] Address [address] [place] [address] Care Team Providers Care Marinator Name Role Phone No, Physician Primary Care Provider [phone] Allergies No known active allergies Medications enalapril [...] on Enalapril 5 mg BID. Enrolled in [facility]. CBC/CMP wnl, UPC 10.8. 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 Gender Identity Not on file Sexual Orientation Not on file Last Filed Vital Signs Vital Sign Reading Time Taken Comments Blood Pressure 129/84 05/30/2024 10:25 PM CONSUMER SCIENCE TEACHER Pulse 62 05/30/2024 10:25 PM CONSUMER SCIENCE TEACHER Temperature 36.8 C (98.2 F) 05/30/2024 6:04 PM CONSUMER SCIENCE TEACHER Respiratory Rate 16 05/30/2024 10:2 5 PM CONSUMER SCIENCE TEACHER Oxygen Saturation 98% 05/30/2024 10: 25 PM CONSUMER SCIENCE TEACHER Inhaled Oxygen Concentration - - Weight 46.7 kg (102 lb 15.3 oz) 05/13/2024 8:31 PM CONSUMER SCIENCE TEACHER Height 157.5 cm (5' 2 ) 05/13/2024 8:31 PM CONSUMER SCIENCE TEACHER Body Mass Index 18.83 05/13/2024 8:31 PM CONSUMER SCIENCE TEACHER Plan of Treatment Not on file Insurance IDSD AETNA BETTER [facility] AETNA [facility] Member Subscriber Plan / Payer (Ef fective 2020-Present) Name:Paris Chanel Relation to Subscriber:Self Name:Paris Chanel Payer ID:[id number] (NAIC) Group ID:Not on file Type:MEDICAID RISK OTHER Address: [facility] [address] [place] [id number] Advance Directives For more information, please contact: [phone] * Full Code (Latest Code Status on File) Date Activated Date Inactivated Comments 10/25/2019 3:10 AM 10/28/2019 10:29 PM * Full Code Date Activated Date Inactivated Comments 10/24/2019 6:03 PM 10/25/2019 3:10 AM Care Teams Marinator Relationship Specialty Start Date End Date No, Physician PCP - General 05/29/24
--- OUTSIDE RECORDS SUMMARY | 2024-11-01 20:47 | XMS_ITS | Encounter Summary ---
Author Organization [facility] Address [address] [place] [address] Care Team Providers Care Training And Development Manager Name Role Phone Unavailable Primary Care Provider Unavailabl e Reason for Visit * Reason Onset Date Comments MEDICATION REFILL 09/05/2021 Encounter Details Date Type Department Care Team (Late st Contact Info) Description 09/05/2021 Refill SM MATERNAL/ EVALUATION UNIT [facility] 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 Answer Date of Assessment Author No 07/27/2021 1:41 PM Pepper Langford RN * Is person blind or have serious difficulty seeing? Answer Date of Assessment Author No 07/27/2021 1:41 PM Pepper Langford RN * Does person have serious difficulty walking/climbing stairs? Answer Date of Assessment Author No 07/27/2021 1:41 PM Pepper Langford RN * Does person have difficulty dressing/bathing? Answer Date of Assessment Author No 07/27/2021 1:41 PM Pepper Langford RN * Does person have difficulty doing errands alone? Answer Date of Assessment Author No 07/27/2021 1:41 PM DRESSED POULTRY GRADER Pepper Briscoe, RN documented as of this encounter Mental Status * Does person have difficulty concentrating/remembering/making decisions? Answer Entry Date Author No 07/27/2021 1:41 PM DRESSED POULTRY GRADER Pepper Briscoe, RN documented in this encounter Plan of Treatment Upcoming Encounters Date Type Department Care Team (Late st Contact Info) Description 11/04/2024 7:30 AM CDT Hospital Encounter [facility] MATERNAL/ EVALUATION UNIT [address] [place] [address] Jaelyn Seth MD [address] [place] [id number] Bahman Roach MD [address] [place] [address] 11/04/2024 8:30 AM CDT Appointment [facility] MATERNAL/ EVALUATION UNIT [address] [place] [address] Sarah Saleh L, SLITTER AND REWINDER-BELLMAN [address] [place] [id number] Sonia Chandler MD [address] [address] [place] [address] Marquita Rodríguez MD [address] [place] [address] documented as of this encounter Visit Diagnoses Not on filedocumented in this encounter Additional Health Concerns Infection Onset Date Last Indicated Resolved Time COVID-19 Under Investigation 09/08/2021 09/08/2021 09/08/2021 8:48 AM DRESSED POULTRY GRADER documented as of this encounter
--- OUTSIDE RECORDS SUMMARY | 2024-11-01 20:47 | XMS_ITS | Clinical Summary ---
Author Organization [facility] Address [address] [place] [address] Care Team Providers Care Electronic Warfare Technician Name Role Phone No, Physician Primary Care Provider Allergies No known active allergies Medications enalapril [...] on Enalapril 5 mg BID. Enrolled in [place]. CBC/CMP wnl, UPC 10.8. # GI/: Tolerating [...] on file Legal Sex Female 7:43 PM HAND STONECUTTER Gender Identity Not on file Sexual Orientation [...] 9 HATTO N,BOY Sarah Mckeon MD Delivery Location:[facility] Main C ampus ([facility] L AND D PROCEDURE) Current Last Filed Vital Signs Vital Sign Reading Time Taken Comments Blood Pressure 129/84 05/30/2024 10:25 PM HAND STONECUTTER Pulse 62 05/30/2024 10:25 PM HAND STONECUTTER Temperature 36.8 C (98.2 F) 05/30/2024 6:04 PM HAND STONECUTTER Respiratory Rate 16 05/30/2024 10:2 5 PM HAND STONECUTTER Oxygen Saturation 98% 05/30/2024 10: 25 PM HAND STONECUTTER Inhaled Oxygen Concentration - - Weight 46.7 kg (102 lb 15.3 oz) 05/13/2024 8:31 PM HAND STONECUTTER Height 157.5 cm (5' 2 ) 05/13/2024 8:31 PM HAND STONECUTTER Body Mass Index 18.83 05/13/2024 8:31 PM HAND STONECUTTER Plan of Treatment Health Maintenance Due Date [...] age to complete this topic Insurance IDPA AETNA BETTER [facility] AETNA [facility] Advance Directives For more information, please contact: [phone] * Full Code (Latest Code Status on File) Date Activated Date Inactivated Comments 10/25/2019 3:10 AM 10/28/2019 10:29 PM * Full Code Date Activated Date Inactivated Comments 10/24/2019 6:03 PM 10/25/2019 3:10 AM Care Teams Electronic Warfare Technician Relationship Specialty Start Date End Date No, Physician PCP - General 05/29/24
--- OUTSIDE RECORDS SUMMARY | 2024-11-01 20:47 | XMS_ITS | Clinical Summary ---
Author Organization [facility] [employer] Address [address] [place] [address] Care Team Providers Care Torsion [place] Coiling Machine Setter Name Role Phone Unavailable Primary Care Provider Unavailabl e Source Comments [facility],non-owned Affiliates and Associated Physician Practices is amultiple site organization consisting of ambulatory clinics and hospital sitesin [place], [place], [place] and [place]. This disclosure is being madepursuant to the Care Everywhere program and may not contain all information available regarding this patient. Last updated 18.[facility] Allergies Active Allergy Reactions Criticality Noted Date Comments Latex Other 2024 Pt reports yeast infections and irritation after latex use. Medications * Be aware that medications may not be up to date on this document. Alwaysverify current medications with the patient. plus iron (Natatab) 29-1 MG tablet Take 1 (one) tablet by mouth once daily 60 tablet 2 4 Active Additional Information Patient not taking.Reason: Other, Reported on 2024 famotidine (Pepcid) 20 MG tablet Take 1 (one) tablet by mouth once daily 60 tablet 1 4 Active Additional Information Patient not taking.Reason: Other, Reported on 2024 aspirin EC (Ecotrin) 81 MG tablet Take 2 (two) tablets by mouth once daily Start taking at 16 weeks gestation 200 tablet 1 4 Active Additional Information Patient not taking.Reason: Other, Reported on 2024 aspirin EC (Ecotrin) 81 MG tablet Take 2 (two) tablets by mouth once daily 100 tablet 2 4 Active pyridoxine (Vitamin B-6) 25 MG tablet Take 2 (two) tablets by mouth once daily For nausea 60 tablet 1 4 Active doxylamine (Unisom) 25 MG tablet Take 1 (one) tablet by mouth nightly as needed (for nausea) 30 tablet 2 4 Active riboflavin 400 MG capsule Take 1 (one) capsule by mouth once daily For headaches 100 capsule 6 4 Active magnesium oxide (Mag-Ox) 400 MG tablet Take 1 (one) tablet by mouth once daily For headacheds 4 Active Active Problems Patient Care Coordination No te Formatting of this note migh t be different from the original. [employer] form completed. Diapers given. 07/05/21. 09/06/21, 10/18/21 Problem Noted Date Diagnosed Date Cramping affecting , antepartum 022 Nausea and vomiting 06/13/2021 History of delivery 04/23/2021 Overview (09/06/2021): - At [facility] in G1 at 31w6d due to PreE w/ SF - Low transverse - desires TOLAC; s/p counseling Supervision of high-risk of young mulgeri igravida 03/25/2021 Overview (09/06/2021): LISA: Tana Gaspar PNL: A+/I/-/-, HIV NR Hep C: negative Ab: Neg HIV: NR GCT:73 Tdap: records [facility] GBS: negative Datinwk scan H/H/Plt: 12/38.4/293>10.4/31.7 Hgb Elec: WNL UDS: +MJ and opiates CF: Neg Pap: not done due to age Gc/Chl/trich: neg UCx: negative Breast/Bottle: Bottle Family Planning: Nexplanon Immunizations: Covid 19 1st injection 05/25/21, 2nd vacc 07/26/21. States she received Flu shot at referring OB office History of pre-eclampsia in prior , currently 03/25/2021 Overview (09/06/2021): - G1 delivered at 31 weeks - LDASA, patient reports she stopped taking a few weeks ago - asxs - baseline PIH labs wnl, P/C 0.10 Seizure-like activity 03/25/2021 Overview (09/06/2021): - reports seizure at beginning of this , none since - is not currently taking medication - has followed with neuro in the past Ventral hernia without obstruction or gangrene Assessment & Plan (07/05/2021 12:33 PM CATHOLIC PRIEST): asymptomatic soft, easily reducible Estimated Date of Delivery Comme nts Yes 01/17/2025 Based on Ultraso und Resolved Problems Problem Noted Date Diagnosed Date Resolved Date Uterine contractions 08/30/2021 022 Abdominal pain during pregna ncy in third trimester 06/24/2021 07/05/2021 History of delivery 03/25/2021 04/23/2021 Overview (03/25/2021): G1- delivered at 31 weeks d/t PreE Encounter for anatomic survey 04/23/2021 Encounter for follow-up ultr asound of anatomy 07/05/2021 23 weeks gestation of 07/05/2021 Encounters Date Type Department Care Team Description 10/07/[address] [facility]/ EVALUATION UNIT [address] [place] [address] Marni Saucedo Scheduling 09/09/[address] [facility] EV[facility]UATION UNIT [address] [place] [address] Carla Sam, RN Care Management Other (Called pt to follow up on referral services/resources sent by career guidance technician of [facility] program. This is the 4th attempt to reach pt ( 8th counting my chart messages) with no response. Paris has not kept her appts and has nothing scheduled after 09/09.Her phone number is not accepting calls @ this time. Will close referral for no contact/response. ) 09/08/[address] [facility]/ EVALUATION UNIT [address] [place] [address] Jessica Benavides Appointment 09/05/[address] [facility]/ EVALUATION UNIT [address] [place] [address]. [address] [place] [address] Marni Saucedo Scheduling 09/03/[address] [facility] [address] [place] [address] Marni Saucedo Scheduling 09/02/2024 12:28 PM CATHOLIC PRIEST - 09/02/2024 11:59 PM CATHOLIC PRIEST Hospital Encounter [facility]/ EVALUATION UNIT [address] [place] [address]. [address] [place] [address] Jaelyn Seth MD Discharge Disposition: Home or Self Care 09/02/2024 Travel 08/06/[address] [facility]/ EVALUATION UNIT [address] [place] [address]. [address] [place] [address] Carla Sam, RN Care Management Other (Called pt to follow up on referral services/resources sent by career guidance technician of [facility] program. No answer-voicemail not available/set up. My chart message sent with reason for call and service line information. Pt has an appointment on 09/02/24-please try to see when she is here. This is the 3rd attempt to reach. ) from Last 3 Months Immunizations Immunization Administration Dates Next Due Cov[employer] primary monoval ent 12+ yr 0.3mL Purple cap 07/26/2021,05/25/2021 MENINGOCOCCAL ACWY (MCV4P) VAC IM 11/04/2012 MMR 09/09/2021(Deferred: - immune per labs) TD VACCINE 02/14/2012 TDAP (7yrs+) 09/09/2021(Deferred: - per pt, received this ) Social History Tobacco Use Types Packs/Day Years Used Date Smoking Tobacco: Never Smokeless Tobacco: Never Alcohol Use Standard Drinks/Week Comments Not Currently 0 (1 standard drink = 0.6 oz pur e alcohol) Overall Financial Resource Strain (CARDIA) Answe r Date Recorded How hard is it for you to pa y for the very basics like food, housing, medical care, and heating? Not hard at all 06/03/2024 [facility] [place] [facility] Occupat ional Health - Occupational Stress Questionnaire Answer Date Recorded Do you feel stress - tense, restless, nervous, or anxious, or unable to sleep at night because your mind is troubled all the time - these days? Not at all 06/03/2024 Hunger Vital Sign Answer Date Recorded Within the past 12 months, y ou worried that your food would run out before you got the money to buy more. Never true 06/03/20 24 Within the past 12 months, t he food you bought just didn't last and you didn't have money to get more. Never true 06/03/2024 PRAPARE - Transportation Answer Date Re corded In the past 12 months, has l ack of transportation kept you from medical appointments or from getting medications? No 05/10 In the past 12 months, has l ack of transportation kept you from meetings, work, or from getting things needed for daily living? Yes 06/03/2024 [place] Depression Scale Answer Date Recorded [place] Depression Scale Total 3 06/03/2024 The thought of harming myself has occurred to me . Never 06/03/2024 Housing Stability Vital Sign Answer Flavio e Recorded In the last 12 months, was t here a time when you were not able to pay the mortgage or rent on time? No 06/03/2024 Number of Times Moved in the Last Year Not on fi le 06/03/2024 At any time in the past 12 m [facility], were you homeless or living in a [place] care facility (including now)? Yes 06/03/2024 Estimated Date of Delivery Comme nts Yes 01/17/2025 Based on Ultraso und Sex and Gender Information Value Date Recorded Sex Assigned at Not on file Legal Sex Female 5:42 AM CATHOLIC PRIEST Gender Identity Not on file Sexual Orientation Not on file Last Filed Vital Signs Vital Sign Reading Time Taken Comments Blood Pressure 117/82 2024 11:45 AM CATHOLIC PRIEST Pulse 77 2024 11:45 AM CATHOLIC PRIEST Temperature 36.4 C (97.6 F) 09/10/2021 10:20 AM CATHOLIC PRIEST Respiratory Rate 16 2024 11:45 AM CATHOLIC PRIEST Oxygen Saturation 100% 09/10/2021 10:20 AM CATHOLIC PRIEST Inhaled Oxygen Concentration - - Weight 45.8 kg (101 lb) 2024 11:45 AM CATHOLIC PRIEST Height 157.5 cm (5' 2 ) 06/03/2024 12:15 PM CATHOLIC PRIEST Body Mass Index 18.47 06/03/2024 12:15 PM CATHOLIC PRIEST Plan of Treatment Upcoming Encounters Date Type Department Care Team (Late st Contact Info) Description 11/04/2024 7:30 AM CDT Hospital Encounter [facility]/ EVALUATION UNIT [address] [place] [address] Jaelyn Seth MD [address] [place] [id number] Bahman Roach MD [address] [place] [address] 11/04/2024 8:[address] [facility]/ EVALUATION UNIT [address] [place] [address] Sarah Saleh L, SENIOR MARKET RESEARCH ANALYST-FELT CUTTING MACHINE OPERATOR [address] [place] [phone] Sonia Chandler MD [address] [facility] [address] [place] [address] Marquita Rodríguez MD [address] [place] [address] Health Maintenance Due Date Last Done Comments HPV VACCINE (1 - 3-dose series) 2016 MENINGOCOCCAL (Group B) VACCINE SHARED DECISION-MAKING (1 of 2 - Standard) 2017 HEPATITIS B VACCINE (1 of 3 - 19+ 3-dose series) 2020 DTAP/TDAP/TD VACCINES (2 - Td or Tdap) 02/13/2022 02/14/2012 COVID-19 VACCINE (3 - 2023- season) 2024 07/26/2021, 05/25/2021 DEPRESSION SCREENING 07/09/2024 06/03/2024 OB-ONE HOUR GLUCOSE 10/11/2024 OB-TDAP CURRENT 10/18/2024 OB-GROUP B STREP SCREEN 12/13/2024 08/30/2021 INFLUENZA VACCINE (Season Ended) 2025 CHLAMYDIA/GONORRHEA SCREENING 06/03/2025 06/03/2024, 02/07/2023, 10/18/2021, Additional history exists PAP SMEAR 06/03/2027 06/03/2024 ZOSTER VACCINE (1 of 2) 2051 MENINGOCOCCAL GROUPS A/C/Y/W VACCINE Aged Out 11/04/2012 No longer eligible based on patient's age to complete this topic HEPATITIS C SCREENING Completed 06/03/2024, 021 HIV SCREENING Completed 06/03/2024, 05/23/2021 HIB VACCINE Aged Out No longer eligi ble based on patient's age to complete this topic PNEUMOCOCCAL VACCINE Aged Out No long er eligible based on patient's age to complete this topic Respiratory Syncytial Virus (RSV) Vaccine Pt: or over 60 yrs (No Doses Required) Completed Procedures Procedure Name Priority Date/Time Associated Diagnosis Comments SONOGRAM - COMPLETE Routine 09/02/2024 12:56 PM CATHOLIC PRIEST PAP IG LB+HPV APTIMA Routine 06/03/2024 1:08 PM CATHOLIC PRIEST Encounter for supervision of low-risk , antepartum HEPATITIS C ANTIBODY Routine 06/03/2024 1:08 PM CATHOLIC PRIEST Encounter for supervision of low-risk , antepartum CHLAMYDIA + GC AMPLIFIED PROBE Routine 06/03/2024 1:08 PM CATHOLIC PRIEST Encounter for supervision of low-risk , antepartum HIV-1 HIV-2 ANTIBODY + HIV P24 AG PANEL Routine 06/03/2024 1:08 PM CATHOLIC PRIEST Encounter for supervision of low-risk , antepartum CULTURE STREP B STAT 08/30/2021 7:59 PM CATHOLIC PRIEST Supervision of high-risk of young multigravida from Last 3 Months or Most Recently Relevant to Health Maintenance Results * SONOGRAM - COMPLETE (09/02/2024 12:56 PM CATHOLIC PRIEST) Linked Results Indication ======== anatomy screen G1: pre-eclampsia, FGR, pre-term delivery at 31w6d, C/ S G2: , seizures in the first trimester History ====== OB History 4. Para 2 [id number] Maternal Assessment Physical Exam Height 157 cm, 5 ft 2 in. Weight 51 kg, 113 lb. Initial weight 46 kg, 101 lb. BMI 20.67 kg/m . Initial BMI 18.47 kg/m . Weight gain 5 kg, 12 lb Method ====== Transabdominal and transvaginal ultrasound examination. View: Sufficient ========= Kc . Number of fetuses: 1 Dating ====== Date Details Gest. age ZORAIDA LMP Cycle: LMP date uncertain Stated ZORAIDA 20 w + 3 d 01/17/2025 U/S 09/02/2024 based upon AC, BPD, Femur, HC 20 w + 5 d 01/15/2025 Assigned dating based on ultrasound (CRL), selected on 06/03/2024 20 w + 3 d 01/17/2025 General Evaluation Cardiac activity present. FHR 146 bpm. Presentation: variable Placenta: Placental site: anterior Umbilical cord: Cord vessels: 3 vessel cord. Insertion site: normal insertion Amniotic fluid: Amount of AF: normal. MVP 4.5 cm Biometry BPD 47.5 mm 20w 3d 47% Hadlock HC 179.2 mm 20w 3d 38% Hadlock Cerebellum tr 21.1 mm 59% [place] Nuchal fold 4.6 mm AC 161.3 mm 21w 2d 70% Hadlock Femur 33.5 mm 20w 3d 44% Hadlock Humerus 33.9 mm 21w 4d 86% Porfirio HC / AC 1.11 -/- 19% Hadlock Weight Calculation: EFW 380 g 66% Hadlock EFW (lb,oz) 0 lb 13 oz EFW by Hadlock ([id number]) Head / Face / Neck Biometry: CM 3.9 mm 13% Nicolaides appropriate Growth Overview Exam date GA BPD (mm) HC (mm) AC (mm) FL (mm) HL (mm) EFW (g) 09/02/2024 20w 3d 47.5 47% 179.2 38% 161.3 70% 33.5 44% 33.9 86% 380 66% Anatomy The following structures appear normal: Head / Neck Cranium. Lateral ventricles. Choroid plexus. Midline falx. Cavum septi pellucidi. Cerebellum. Cisterna magna. Thalami. Nuchal fold. Face Lips. Profile. Nose. Nasal bone. Orbits. Heart / Thorax 4-chamber view. RVOT view. LVOT view. 3-vessel view. 8-zqtpdg-khftuqy view. Situs. Aortic arch view. Bicaval view. Ductal arch view. Great vessels. Right lung. Left lung. Diaphragm. Abdomen Cord insertion. Stomach. Kidneys. Bladder. Bowel. Genitals. Spine Cervical spine. Thoracic spine. Lumbar spine. Sacral spine. Extremities / Skeleton Arms. Hands. Legs. Feet. Maternal Structures Cervix reassuring Approach - Transvaginal: Cervical length 4.18 cm Right Ovary Normal Left Ovary Normal Impression ========= Single live intrauterine at 20w 3d in variable presentation The ZORAIDA is 01/17/2025 Fetus measures 20w 5d which is appropriate for established gestational age (EFW 66%, AC 70%) The amniotic fluid volume appears normal Transvaginal cervical length appears reassuring measuring 4.18 cm No major malformations or aneuploidy markers were seen within the limitations of ultrasound. Follow-up ======== Follow up growth in 8 weeks due to history of FGR Coding ====== Procedures 27715: US Preg Uterus >14 weeks [id number]: US Preg Uterus Transvaginal FantomS Anatomical Region Laterality Modality Other 09/02/2024 12:5 6 PM CATHOLIC PRIEST Bahman Roach MD [facility] ORDERABLES Edited Result - Final * CHLAMYDIA + GC AMPLIFIED PROBE (06/03/2024 1:08 PM CATHOLIC PRIEST) Chlamydia Amplified Probe Negative Negative 06/03/2024 9:12 PM CATHOLIC PRIEST [facility] GC Amplified Probe Negative Negative 06/03/2024 9:12 PM CATHOLIC PRIEST [facility] Other ENTIRE VAGINA / Unknown Collection / Unknown 06/03/2024 1:08 PM CATHOLIC PRIEST 06/03/2024 2:08 PM CATHOLIC PRIEST Narrative [facility] - 06/03/2024 9:12 PM CATHOLIC PRIEST Results based on detection/no detection of ribosomal RNA by amplified method. Sonia Soliman MD LAB - MICROBIOLOGY ORDERABLES Fi nal Result [facility] [address] [place] [address], [facility] [phone] * PAP IG LB+HPV APTIMA (06/03/2024 1:08 PM CATHOLIC PRIEST) Diagnosis Comment 06/13/2024 10:13 AM CATHOLIC PRIEST [facility] ([facility]) Comment: NEGATIVE FOR INTRAEPITHELIAL LESION OR MALIGNANCY. PREDOMINANCE OF COCCOBACILLI CONSISTENT WITH SHIFT IN VAGINAL WALLACE IS PRESENT. Specimen Adequacy Comment 10:13 AM CATHOLIC PRIEST [facility] ([facility]) Comment: Satisfactory for evaluation. Endocervical and/or squamous metaplastic cells (endocervical component) are present. Performed by Comment 06/13/2024 10:13 AM CATHOLIC PRIEST [facility] ([facility]) Comment:Nic Baird chnologist (ASCP) Comment . 06/13/2024 10:13 AM CATHOLIC PRIEST [facility] ([facility]) Note Comment 06/13/2024 10:13 AM CATHOLIC PRIEST [facility] ([facility]) Comment: The Pap smear is a screening test designed to aid in the detection of premalignant and malignant conditions of the uterine cervix. It is not a diagnostic procedure and should not be used as the sole means of detecting cervical cancer. Both false-positive and false-negative reports do occur. IGLBP CPT Code Automation Comment 06/13/2024 10:13 AM [facility] Comment: This liquid based ThinPrep(R) pap test was screened with the use of an image guided system. Human papillomavirus Aptima Negative Negative 06/13/2024 10:13 AM [facility] Comment: This nucleic acid amplification test detects fourteen high-risk HPV types (16,18,31,33,35,39,45,51,52,56,58,59,66,68) without differentiation. Pathology/Cytolo gy ENTIRE ENDOCERVIX / Unknown Collection / Unknown 06/03/2024 1:08 PM CATHOLIC PRIEST 06/03/2024 2:02 PM CATHOLIC PRIEST Narrative [facility] ([facility]) - 06/13/2024 10:13 AM CATHOLIC PRIEST Performed at: [facility] Cyto Histo [address] [place] [id number] Biology Department Chair: Star Hernandez MD, Phone: [phone] Performed at: [address] [id number] Biology Department Chair: Caitlin Frias MD, Phone: [phone] Performed at: 03 - [address] [id number] Biology Department Chair: Caitlin Frias MD, Phone: [phone] Specimen Comment: Source.............Cervix;Endocervix Specimen Comment: No. of containers..01 ThinPrep Vial Sonia Soliman MD LAB - PATHOLOGY/CYTOLOGY ORDERAB LES Final Result [facility] ([facility]) [address] [place] [address] * HIV-1 HIV-2 ANTIBODY + HIV P24 AG PANEL (06/03/2024 1:08 PM CATHOLIC PRIEST) HIV1/2 Ab + P24 Ag Non Reactive Non Reactive 06/03/2024 2:51 PM [facility] Blood BLOOD SPECIMEN / Unknown Venipuncture / Unknown 06/03/2024 1:08 PM CATHOLIC PRIEST 06/03/2024 2:08 PM CATHOLIC PRIEST Narrative [facility] - 06/03/2024 2:51 PM CATHOLIC PRIEST No Laboratory evidence of HIV infection. Sonia Soliman MD LAB - CHEMISTRY ORDERABLES Final Result Performing Organization Address City/[facility]/ZIP Co de Phone Number [facility] [address] [place] [phone] * HEPATITIS C ANTIBODY (06/03/2024 1:08 PM CATHOLIC PRIEST) HCV Antibody Screen Non Reactive Non Reactive 06/03/2024 2:[address] [facility] Blood BLOOD SPECIMEN / Unknown Venipuncture / Unknown 06/03/2024 1:08 PM CATHOLIC PRIEST 06/03/2024 2:08 PM CATHOLIC PRIEST Narrative [facility] - 06/03/2024 2:51 PM CATHOLIC PRIEST Non Reactive - Antibodies to Hepatitis C virus (HCV) were not detected, result does not exclude early acute HCV infection. Sonia Soliman MD LAB - CHEMISTRY ORDERABLES Final Result Performing Organization Address [facility] Co de Phone Number [facility] [address] [place] [phone] * CULTURE STREP B (08/30/2021 7:59 PM CATHOLIC PRIEST) Pathologist [facility] Culture Strep B Negative for beta-hemolytic Streptococcus Group B BEATRIZ 09/03/2021 9:17 AM CATHOLIC PRIEST [facility] Microbiology MISCELLANEOUS SAMPLES / Unknown Collection / Unknown 08/30/2021 7:59 PM CATHOLIC PRIEST 08/30/2021 8:22 PM CATHOLIC PRIEST Sonia Fontaine MD LAB - MICROBIOLOGY ORDERAB LES Final Result [facility] [address] [place] [address], [facility] [phone] from Last 3 Months or Most Recently Relevant to Health Maintenance Insurance MEDICAID [employer] [place] [facility] Address: [address] [place] [address] MEDICAID - [place] Advance Directives * Full Code (Latest Code Status on File) Date Activated Date Inactivated Comments 09/08/2021 8:22 AM 09/10/2021 1:54 PM * Full Code Date Activated Date Inactivated Comments 07/27/2021 11:34 AM 07/27/2021 2:56 PM * Full Code Date Activated Date Inactivated Comments 06/24/2021 9:17 AM 06/24/2021 12:51 PM * Full Code Date Activated Date Inactivated Comments 05/23/2021 4:29 AM 05/23/2021 4:19 PM
--- OUTSIDE RECORDS SUMMARY | 2024-11-01 20:47 | XMS_ITS | Encounter Summary ---
Author Organization [facility] Health Address [address] [place] [address] Care Team Providers Care Wax Pumper Name Role Phone Unavailable Primary Care Provider Unavailabl e Encounter Details Date Type Department Care Team (Late st Contact Info) Description 09/12/2021 Telephone 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 Answer Date of Assessment Author No 09/08/2021 10:06 AM Justen Meza RN * Is person blind or have serious difficulty seeing? Answer Date of Assessment Author No 09/08/2021 10:06 AM Justen Meza RN * Does person have serious difficulty walking/climbing stairs? Answer Date of Assessment Author No 09/08/2021 10:06 AM Justen Meza RN * Does person have difficulty dressing/bathing? Answer Date of Assessment Author No 09/08/2021 10:06 AM Justen Meza RN * Does person have difficulty doing errands alone? Answer Date of Assessment Author No 09/08/2021 10:06 AM MEDICAL TRANSPORT SPECIALIST Justen Buckner, RN documented as of this encounter Mental Status * Does person have difficulty concentrating/remembering/making decisions? Answer Entry Date Author No 09/08/2021 10:06 AM MEDICAL TRANSPORT SPECIALIST Justen Buckner, RN documented in this encounter Miscellaneous Notes * Telephone Encounter - Vero Oakes RN - 09/12/2021 1:42 PM CST Created in error. CAL TRANSPORT SPECIALIST documented in this encounter Plan of Treatment Upcoming Encounters Date Type Department Care Team (Late st Contact Info) Description 11/04/2024 7:30 AM CDT Hospital Encounter [facility] MATERNAL/ EVALUATION UNIT [address] [place] [address] Jaelyn Seth MD [address] [place] [phone] Bahman Roach MD [address] [place] [address] 11/04/2024 8:30 AM CDT Appointment [facility] MATERNAL/ EVALUATION UNIT [address] [place] [address] Sarah Saleh L, STOCK PULLER-PARK WARDEN [address] [place] [phone] Sonia Chandler MD [address] [facility] [address] [place] [address] Marquita Rodríguez MD [address] [place] [address] documented as of this encounter Visit Diagnoses Not on filedocumented in this encounter
--- OUTSIDE RECORDS SUMMARY | 2024-11-01 20:47 | XMS_ITS | Clinical Summary ---
Author Organization [facility] Address [address] [place] [id number] Care Team Providers Care Family Readiness Support Assistant Name Role Phone None, Provider MD Primary [...] Sex Assigned at Female 07/27/2024 6:42 AM [employer] Legal Sex Female 6:22 PM CDT Gender Identity Female 07/27/2024 6:42 AM [employer] Sexual Orientation Not on file Last Filed Vital Signs Vital Sign Reading Time Taken Comments Blood Pressure 107/58 07/27/2024 6:35 AM [employer] Pulse 90 07/27/2024 6:35 AM [employer] Temperature 36.6 C (97.9 F) 07/27/2024 6:35 AM [employer] Respiratory Rate 18 07/27/2024 6:35 AM [employer] Oxygen Saturation 100% 07/27/2024 6:35 AM [employer] Inhaled Oxygen Concentration - - Weight 45.8 kg (101 lb) 07/27/2024 6:35 AM [employer] Height 157.5 cm (5' 2 ) 07/27/2024 6:35 AM [employer] Body Mass Index 18.47 07/27/2024 6:35 AM [employer] Plan of Treatment Health Maintenance Due Date [...] patient's age to complete this topic [place] [address] MEDICAID Care Teams Family Readiness Support Assistant Relationship Specialty Start Date End Date None, Provider, PCP - General 06/08/19
[2024-11-01 20:56] VITALS: BP 115/75; PULSE 96
[2024-11-01 21:00] VITALS: BP 106/70; PULSE 95
[2024-11-01 21:15] VITALS: BP 110/66; PULSE 96
[2024-11-01 21:15] LABS: Add Urine Microscopic? YES; Appearance Urine Cloudy (Clear); Bacteria Urine None Seen /hpf; Bilirubin Urine Negative (Negative); Blood Urine Negative (Negative); Color Urine Yellow (Yellow); Glucose Urine UA Negative (Negative); Ketones Urine Negative (Negative); Leukocyte Esterase Ur Negative LEU/UL (Negative); Nitrate Urine Negative (Negative); Non Pathogenic Casts 0-2; Protein Urine Negative (Negative); RBC Urine 0-2 /hpf (0-2); Specific Grav Ur 1.019 (1.001-1.035); Squamous Epithelial Cell Urine Moderate /hpf (Few); WBC Urine 0-5 /hpf (0-3)
[2024-11-01 21:30] VITALS: BP 111/67; PULSE 94
[2024-11-01] MEDS: LACTATED RINGERS 1,000 ML 999 ML IV CONT ×2 (21:45→22:30)
[2024-11-01 21:54] VITALS: BMI 22.5
--- NOTE | 2024-11-03 08:39 | PM.OBTRLD ---
OB - Triage/Final Diagnosis Visit Information Date of evaluation: 11/01/24 Reason for evaluation: other (abdominal pain) Comments/Additional reasons for admission: I have assessed the risk for this patient, Paris Chanel, and determined that she would benefit from observation care. Evaluation Laboratory results: Laboratory Tests 11/01/24 21:07 Urine Color Yellow Urine Appearance Cloudy H Urine pH 6.0 Ur Specific [place] 1.019 Urine Protein Negative Urine Glucose (UA) Negative Urine Ketones Negative Ur Blood (Man) Negative Urine Nitrate Negative Urine Bilirubin Negative Urine Urobilinogen 1.0 Leukocyte Esterase Rfl Negative Urine RBC 0-2 Urine WBC 0-5 Ur Squamous Epith Cells Moderate Urine Bacteria None seen Urine Casts 0-2
== END 2024-11-01 23:11 | disposition home or self-care (01) ==
PROVIDERS: Admitting Provider Student in an Organized Health Care Education/Training Program; Visit Provider Student in an Organized Health Care Education/Training Program
DX: O26.893 Other specified pregnancy related conditions, third trimester (principal); R10.9 Unspecified abdominal pain; Z3A.29 29 weeks gestation of pregnancy
CPT/HCPCS: 81001; 96360; G0378; G0379; J7120